=== PATIENT | female | born 1940 | race Caucasian/White ===

== ENCOUNTER 2021-06-23 19:40 | Emergency (ER) | payer OTHER, MEDICARE ==
[2021-06-23 22:13] LABS: #Lymphocytes 0.7 thou/uL (1.20-3.40); #Monocytes 0.1 thou/uL (0.11-0.59); #Neutrophils 10.1 thou/uL (1.40-6.50); %Eosinophils 0.2 % (0.0-10.0); %Lymphocytes 6.3 % (21.0-51.0); %Monocytes 1.1 % (0.0-10.0); %Neutrophils 92.4 % (42.0-75.0); Hemoglobin 13.9 g/dL (12.0-16.0); Mean Corpuscular HGB CONC 32.4 g/dL (32.0-36.0); Mean Corpuscular Hemoglobin 28.7 pg (27.0-31.0); Mean Corpuscular Volume 88.5 fL (78.0-98.0); Mean Platelet Volume 6.2 fL (7.4-10.4); Platelet Count 303 thou/uL (130-400); RBC Distribution Width 12.4 % (11.5-14.5); Red Blood Cell (RBC) Count 4.86 mill/uL (4.20-5.40); White Blood Cell (WBC) Count 10.9 thou/uL (4.8-10.8)
[2021-06-23 22:25] LABS: INR-International Normal Ratio 1.4; PTT 33.7 sec (22.9-36.1)
[2021-06-23] MEDS ORDERED: Lidocaine 1% (PF) 30 ML VIAL ONE (22:32)
[2021-06-23 22:35] LABS: ALT (SGPT) 15 U/L (8-55); AST (SGOT) 9 U/L (5-34); Albumin 3.7 g/dL (3.4-4.8); Alkaline Phosphatase 72 U/L (40-110); Anion Gap 14 mmol/L (10-20); BUN (Urea Nitrogen) 14 mg/dL (9.8-20.1); Bilirubin, Total 0.4 mg/dL (0.2-1.2); Calc. Creatinine Clearance 0 mL/min (70-130); Carbon Dioxide 29 mmol/L (23-31); Chloride 103 mmol/L (98-107); Globulin 3.3 g/dL (2.4-3.5); Glucose 191 mg/dL (83-110); Potassium 4.6 mmol/L (3.5-5.1); Sodium 141 mmol/L (136-145)
== END 2021-06-24 00:52 | disposition home or self-care (01) ==
LOC: ERS 19:40
DX: S09.90XA Unspecified injury of head, initial encounter (principal); S01.81XA Laceration without foreign body of other part of head, initial encounter; I10 Essential (primary) hypertension; W01.0XXA Fall on same level from slipping, tripping and stumbling without subsequent striking against object, initial encounter
CPT/HCPCS: 12011; 36415; 70450; 72125; 80053; 85025; 85610; 85730; J2001

== ENCOUNTER 2021-11-12 13:34 | Inpatient (IN) | payer MEDICARE ==
[2021-11-12 14:26] LABS: #Lymphocytes 1.3 thou/uL (1.20-3.40); #Monocytes 0.5 thou/uL (0.11-0.59); #Neutrophils 6.1 thou/uL (1.40-6.50); %Basophils 0.6 % (0.0-1.0); %Eosinophils 0.5 % (0.0-10.0); %Lymphocytes 16.3 % (21.0-51.0); %Neutrophils 76.6 % (42.0-75.0); Hemoglobin 14.3 g/dL (12.0-16.0); Mean Corpuscular HGB CONC 33.1 g/dL (32.0-36.0); Mean Corpuscular Volume 87.8 fL (78.0-98.0); Platelet Count 211 thou/uL (130-400); RBC Distribution Width 14.4 % (11.5-14.5); Red Blood Cell (RBC) Count 4.91 mill/uL (4.20-5.40)
[2021-11-12 14:38] LABS: INR-International Normal Ratio 1.2; PTT 27.8 sec (22.9-36.1); Prothrombin Time 15.1 sec (12.0-14.7)
[2021-11-12 14:47] LABS: ALT (SGPT) 9 U/L (8-55); AST (SGOT) 5 U/L (5-34); Albumin 3.8 g/dL (3.4-4.8); Alkaline Phosphatase 67 U/L (40-110); Anion Gap 17 mmol/L (10-20); BUN (Urea Nitrogen) 22 mg/dL (9.8-20.1); Bilirubin, Total 0.6 mg/dL (0.2-1.2); CK (CPK) 12 U/L (29-168); Calc. Creatinine Clearance 0 mL/min (70-130); Carbon Dioxide 25 mmol/L (23-31); Chloride 97 mmol/L (98-107); Globulin 2.5 g/dL (2.4-3.5); Magnesium 1.8 mg/dL (1.6-2.6); Potassium 4.2 mmol/L (3.5-5.1); Protein, Total 6.3 g/dL (5.8-8.1); Sodium 135 mmol/L (136-145)
[2021-11-12 14:55] LABS: Glucose 623 mg/dL (83-110)
[2021-11-12 15:18] LABS: Bilirubin Negative (Negative); Blood, Urine Trace (Negative); Clarity Clear (Clear); Glucose, Urine (Dipstick) Greater than 1000 mg/dL (Negative); Ketone, Urine Negative (Negative); Leukocyte 500 Leu/uL (Negative); Nitrite Negative (Negative); Protein, Urine (Dipstick) 10 mg/dL (Neg-Trace); Specific Gravity, Urine 1.032 (1.002-1.036); Squamous Epithelial 0-3 HPF (0-3); Urobilinogen Normal mg/dL (Less than 2); pH, Urine 5.5 (5.0-9.0)
[2021-11-12 15:26] LABS: Bacteria/HPF 1+ HPF (None Seen); WBC/HPF 21-50 HPF (0-3)
[2021-11-12] MEDS ORDERED: INSULIN REGULAR IN 0.9 % NACL 100 UNIT/100 ML BAG ONE (15:46)
[2021-11-12] MEDS ORDERED: Insulin Regular 300 UNITS/3 ML VIAL ONE (15:51)
[2021-11-12] MEDS ORDERED: Aztreonam 1 GM in Sodium Chloride 0.9% 100 ML IVPB SCH (16:45)
[2021-11-12] MEDS ORDERED: Senokot S 8.6-50 MG TAB PO PRN (17:05)
[2021-11-12] MEDS ORDERED: Calcium Carbonate 500 MG ChewTAB PO PRN (17:05)
[2021-11-12] MEDS ORDERED: Sodium Chloride 0.9% 1,000 ML IV SCH (17:15)
[2021-11-12] MEDS ORDERED: Magnesium 2 GM/50 ML BAG (IN WATER) ONE (17:20)
[2021-11-12] MEDS ORDERED: Acetaminophen 500 MG TAB ONE (17:21)
[2021-11-12] MEDS ORDERED: Dextrose 5% in Water 1,000 ML IV PRN (17:34)
[2021-11-12] MEDS ORDERED: Dextrose 50% Abboject 50 ML SYRINGE SLOW IVP PRN (17:34)
[2021-11-12] MEDS ORDERED: ALPRAZolam 0.25 MG TAB PO PRN (17:38)
[2021-11-12 17:40] LABS: Hemoglobin A1c 11.1 % (4.0-6.0)
[2021-11-12 17:45] LABS: Troponin I 0.013 ng/mL (< 0.028)
[2021-11-12] MEDS ORDERED: Mometasone/Formoterol 200/5 60 PUFF INH SCH (17:45)
[2021-11-12] MEDS ORDERED: Dronedarone HCl 400 MG TAB PO SCH (17:45)
[2021-11-12 20:14] LABS: Troponin I 0.013 ng/mL (< 0.028)
[2021-11-12] MEDS: Bupropion 150 MG XL TAB PO SCH (21:18)
[2021-11-12] MEDS: Apixaban 5 MG TAB PO SCH (21:18)
[2021-11-12] MEDS: guaiFENesin ER 600 MG TAB PO SCH (21:18)
[2021-11-12] MEDS: Montelukast Sodium 10 mg Tablet PO SCH (21:18)
[2021-11-12] MEDS: Insulin Regular 300 UNITS/3 ML VIAL SC PRN (21:19)
[2021-11-12 23:01] VITALS: BMI 33.8
[2021-11-13] LABS: SARS-CoV-2 PCR by NAA Not Detected (NotDetected)
[2021-11-13] MEDS: Insulin Regular 300 UNITS/3 ML VIAL SC PRN ×6 (00:11→20:06)
[2021-11-13 04:42] LABS: #Eosinphils 0.1 thou/uL (0.0-0.7); #Lymphocytes 2.3 thou/uL (1.20-3.40); #Monocytes 0.6 thou/uL (0.11-0.59); #Neutrophils 5.2 thou/uL (1.40-6.50); %Basophils 0.2 % (0.0-1.0); %Eosinophils 0.8 % (0.0-10.0); %Lymphocytes 27.7 % (21.0-51.0); %Monocytes 7.1 % (0.0-10.0); %Neutrophils 64.3 % (42.0-75.0); Hemoglobin 12.7 g/dL (12.0-16.0); Mean Corpuscular HGB CONC 33.1 g/dL (32.0-36.0); Mean Corpuscular Hemoglobin 29.2 pg (27.0-31.0); Mean Corpuscular Volume 88.2 fL (78.0-98.0); Mean Platelet Volume 7.4 fL (7.4-10.4); Platelet Count 176 thou/uL (130-400); RBC Distribution Width 14.2 % (11.5-14.5); Red Blood Cell (RBC) Count 4.37 mill/uL (4.20-5.40); White Blood Cell (WBC) Count 8.1 thou/uL (4.8-10.8)
[2021-11-13 05:04] LABS: Anion Gap 12 mmol/L (10-20); BUN (Urea Nitrogen) 19 mg/dL (9.8-20.1); Calc. Creatinine Clearance 81 mL/min (70-130); Calcium 8.6 mg/dL (7.8-10.44); Carbon Dioxide 26 mmol/L (23-31); Chloride 104 mmol/L (98-107); Glucose 220 mg/dL (83-110); Potassium 3.6 mmol/L (3.5-5.1); Sodium 138 mmol/L (136-145)
[2021-11-13] MEDS: Aztreonam 1 GM in Sodium Chloride 0.9% 100 ML IVPB SCH ×2 (05:34→17:25)
[2021-11-13] MEDS: Mometasone 200 MCG/Formoterol 5 MCG 120 PUFF INHALER INH SCH ×2 (05:35→17:47)
[2021-11-13] MEDS: Dronedarone HCl 400 MG TAB PO SCH ×2 (09:04→17:26)
[2021-11-13] MEDS: guaiFENesin ER 600 MG TAB PO SCH ×2 (09:04→20:04)
[2021-11-13] MEDS: Apixaban 5 MG TAB PO SCH ×2 (09:04→20:04)
[2021-11-13] MEDS: Bupropion 150 MG XL TAB PO SCH ×2 (09:04→20:04)
[2021-11-13] MEDS ORDERED: Promethazine 25 MG TAB PO PRN (13:45)
[2021-11-13] MEDS: Montelukast Sodium 10 mg Tablet PO SCH (20:04)
[2021-11-14] MEDS: Aztreonam 1 GM in Sodium Chloride 0.9% 100 ML IVPB SCH ×2 (05:20→18:19)
[2021-11-14] MEDS: Insulin Regular 300 UNITS/3 ML VIAL SC PRN ×4 (05:21→20:42)
[2021-11-14] MEDS: Dronedarone HCl 400 MG TAB PO SCH ×2 (07:53→15:51)
[2021-11-14] MEDS: Apixaban 5 MG TAB PO SCH ×2 (07:53→20:42)
[2021-11-14] MEDS: Bupropion 150 MG XL TAB PO SCH ×2 (07:54→20:42)
[2021-11-14] MEDS: guaiFENesin ER 600 MG TAB PO SCH ×2 (07:55→20:42)
[2021-11-14] MEDS: Mometasone 200 MCG/Formoterol 5 MCG 120 PUFF INHALER INH SCH ×2 (07:57→18:17)
[2021-11-14 08:19] LABS: Anion Gap 13 mmol/L (10-20); BUN (Urea Nitrogen) 14 mg/dL (9.8-20.1); Calc. Creatinine Clearance 74 mL/min (70-130); Calcium 8.7 mg/dL (7.8-10.44); Carbon Dioxide 23 mmol/L (23-31); Chloride 105 mmol/L (98-107); Glucose 232 mg/dL (83-110); Potassium 3.9 mmol/L (3.5-5.1); Sodium 137 mmol/L (136-145)
[2021-11-14] MEDS: Lorazepam 0.5 MG TAB PO PRN ×2 (09:48→15:50)
[2021-11-14] MEDS ORDERED: Diltiazem 125 MG in Sodium Chloride 0.9% 100 ML IVPB SCH (10:00)
[2021-11-14] MEDS ORDERED: Insulin Glargine 30 UNITS/0.3 ML VIAL SC SCH (11:45)
[2021-11-14] MEDS: Acetaminophen 325 MG TAB PO PRN (15:50)
[2021-11-14] MEDS: Montelukast Sodium 10 mg Tablet PO SCH (20:42)
[2021-11-14] MEDS ORDERED: Diltiazem HCl 125 MG in Premix Bag 1 BAG IVPB SCH (23:00)
[2021-11-15] MEDS: Aztreonam 1 GM in Sodium Chloride 0.9% 100 ML IVPB SCH (05:50)
[2021-11-15] MEDS: Mometasone 200 MCG/Formoterol 5 MCG 120 PUFF INHALER INH SCH ×2 (06:33→19:02)
[2021-11-15] MEDS: Insulin Regular 300 UNITS/3 ML VIAL SC PRN ×2 (06:42→17:33)
[2021-11-15] MEDS: Bupropion 150 MG XL TAB PO SCH ×2 (08:05→20:14)
[2021-11-15] MEDS: Dronedarone HCl 400 MG TAB PO SCH (08:05)
[2021-11-15] MEDS: Insulin Glargine 30 UNITS/0.3 ML VIAL SC SCH (08:05)
[2021-11-15] MEDS: guaiFENesin ER 600 MG TAB PO SCH ×2 (08:05→20:15)
[2021-11-15] MEDS: Apixaban 5 MG TAB PO SCH ×2 (08:05→20:14)
[2021-11-15] MEDS: Lorazepam 0.5 MG TAB PO PRN (13:37)
[2021-11-15] MEDS: Acetaminophen 325 MG TAB PO PRN (17:42)
[2021-11-15] MEDS: Flecainide 50 MG TAB PO SCH (20:14)
[2021-11-15] MEDS: Montelukast Sodium 10 mg Tablet PO SCH (20:15)
[2021-11-16] MEDS: Insulin Regular 300 UNITS/3 ML VIAL SC PRN ×2 (06:22→10:53)
[2021-11-16] MEDS: Mometasone 200 MCG/Formoterol 5 MCG 120 PUFF INHALER INH SCH (06:47)
[2021-11-16] MEDS: Bupropion 150 MG XL TAB PO SCH (08:07)
[2021-11-16] MEDS: guaiFENesin ER 600 MG TAB PO SCH (08:07)
[2021-11-16] MEDS: Apixaban 5 MG TAB PO SCH (08:07)
[2021-11-16] MEDS: Flecainide 50 MG TAB PO SCH (08:08)
[2021-11-16] MEDS: Insulin Glargine 30 UNITS/0.3 ML VIAL SC SCH (08:08)
[2021-11-16 09:20] LABS: Anion Gap 10 mmol/L (10-20); BUN (Urea Nitrogen) 9 mg/dL (9.8-20.1); Calc. Creatinine Clearance 80 mL/min (70-130); Carbon Dioxide 26 mmol/L (23-31); Chloride 107 mmol/L (98-107); Glucose 160 mg/dL (83-110); Magnesium 1.7 mg/dL (1.6-2.6); Potassium 3.6 mmol/L (3.5-5.1); Sodium 139 mmol/L (136-145)
[2021-11-16 11:44] VITALS: BP 137/78; TEMP 98
== END 2021-11-16 13:22 | disposition home or self-care (01) | DRG 308 ==
LOC: SUATTDRO 13:34 → ERS 13:34 → 2SW 16:36 → OBSVTOIN 11-14 15:21
PROVIDERS: ADMIT Internal Medicine; ATTEND Internal Medicine
DX: I48.0 Paroxysmal atrial fibrillation (principal); J96.20 Acute and chronic respiratory failure, unspecified whether with hypoxia or hypercapnia; J45.901 Unspecified asthma with (acute) exacerbation; N17.9 Acute kidney failure, unspecified; E87.1 Hypo-osmolality and hyponatremia; N39.0 Urinary tract infection, site not specified; Z20.822 Contact with and (suspected) exposure to COVID-19; E66.9 Obesity, unspecified; F41.9 Anxiety disorder, unspecified; K21.9 Gastro-esophageal reflux disease without esophagitis; H91.90 Unspecified hearing loss, unspecified ear; N18.30 Chronic kidney disease, stage 3 unspecified; F32.A Depression, unspecified; E11.65 Type 2 diabetes mellitus with hyperglycemia; Z96.653 Presence of artificial knee joint, bilateral; E11.22 Type 2 diabetes mellitus with diabetic chronic kidney disease; Z90.49 Acquired absence of other specified parts of digestive tract; Z88.1 Allergy status to other antibiotic agents; Z88.0 Allergy status to penicillin; Z88.2 Allergy status to sulfonamides; Z88.8 Allergy status to other drugs, medicaments and biological substances; Z68.34 Body mass index [BMI] 34.0-34.9, adult; Z87.891 Personal history of nicotine dependence; Z82.3 Family history of stroke; Z90.11 Acquired absence of right breast and nipple; Z86.711 Personal history of pulmonary embolism; Z87.442 Personal history of urinary calculi; Z86.73 Personal history of transient ischemic attack (TIA), and cerebral infarction without residual deficits
CPT/HCPCS: 36415; 36416; 71045; 80048; 80053; 81003; 81015; 82550; 83036; 83735; 83880; 84443; 84484; 85025; 85610; 85730; 87040; 87086; 93005; 96365; 96368; 96375; 96376; G0378; J1815; J3475; J3490; J7620; U0003; U0005

== ENCOUNTER 2021-11-30 13:20 | Outpatient (CLI) | payer MEDICARE | END 2021-11-30 13:21 | disposition home or self-care (01) | LOC: RAD 13:20 | PROVIDERS: ATTEND Internal Medicine Critical Care Medicine | DX: R06.00 Dyspnea, unspecified (principal) | CPT/HCPCS: 71046 ==

== ENCOUNTER 2021-12-14 18:00 | Outpatient (CLI) | payer MEDICARE | END 2021-12-14 18:01 | disposition home or self-care (01) | LOC: SLEEPLAB 18:00 | PROVIDERS: ATTEND Internal Medicine Critical Care Medicine | DX: G47.33 Obstructive sleep apnea (adult) (pediatric) (principal); R06.83 Snoring | CPT/HCPCS: 95800 ==

== ENCOUNTER 2022-01-04 10:32 | Outpatient (CLI) | payer MEDICARE ==
[~2022-01-04 10:32] MED LIST: Iopamidol 370 76% 100 ML VIAL ONE
== END 2022-01-04 10:33 | disposition home or self-care (01) ==
LOC: BICCT 10:32
PROVIDERS: ATTEND Family Medicine
DX: R10.9 Unspecified abdominal pain (principal); K57.30 Diverticulosis of large intestine without perforation or abscess without bleeding; K63.89 Other specified diseases of intestine; N20.0 Calculus of kidney; N28.1 Cyst of kidney, acquired
CPT/HCPCS: 74177; Q9967

== ENCOUNTER 2022-02-02 12:57 | Outpatient (CLI) | payer MEDICARE ==
[2022-02-02 14:55] LABS: Hemoglobin 13.6 g/dL (12.0-15.5); Mean Corpuscular HGB CONC 31.2 g/dL (32.0-36.0); Mean Corpuscular Hemoglobin 27.6 pg (27.0-33.0); Mean Corpuscular Volume 88.4 fl (81.6-98.3); Mean Platelet Volume 10.6 fl (7.4-10.4); Platelet Count 242 10x3/uL (150-450); RBC Distribution Width 14.3 % (11.5-14.5); Red Blood Cell (RBC) Count 4.93 10x6/uL (3.90-5.03); White Blood Cell (WBC) Count 8.5 10x3/uL (3.5-10.5)
[2022-02-02 15:05] LABS: INR-International Normal Ratio 1.1; Prothrombin Time 11.8 sec (9.5-12.1)
[2022-02-02 15:07] LABS: Anion Gap 15 mmol/L (10-20); BUN (Urea Nitrogen) 16 mg/dL (9.8-20.1); Calc. Creatinine Clearance 0 mL/min (70-130); Calcium 9.5 mg/dL (7.8-10.44); Carbon Dioxide 28 mmol/L (23-31); Chloride 103 mmol/L (98-107); Estimated GFR 76; Glucose 73 mg/dL (83-110); Potassium 4.4 mmol/L (3.5-5.1); Sodium 142 mmol/L (136-145)
== END 2022-02-02 12:58 | disposition home or self-care (01) ==
LOC: LABBT 12:57
PROVIDERS: ATTEND Internal Medicine Cardiovascular Disease
DX: Z01.812 Encounter for preprocedural laboratory examination (principal); I48.0 Paroxysmal atrial fibrillation; Z20.822 Contact with and (suspected) exposure to COVID-19
CPT/HCPCS: 80048; 85027; 85610; 87811

== ENCOUNTER 2022-02-07 10:32 | Day surgery (SDC) | payer MEDICARE ==
[2022-02-03 12:14] VITALS: BMI 31.8
[2022-02-07] MEDS ORDERED: PROPOFOL 200 MG/20 ML VIAL ONE (11:45)
[2022-02-07] MEDS ORDERED: Lidocaine 1% PF 5 ML VIAL ONE (11:45)
== END 2022-02-07 13:12 | disposition home or self-care (01) ==
LOC: SDC 10:32
PROVIDERS: ATTEND Internal Medicine Cardiovascular Disease
PROC: 5A2204Z Restoration of Cardiac Rhythm, Single (ICD-10-PCS; principal; 2022-02-07)
DX: I48.19 Other persistent atrial fibrillation (principal); J45.909 Unspecified asthma, uncomplicated; I10 Essential (primary) hypertension; K21.9 Gastro-esophageal reflux disease without esophagitis; M19.90 Unspecified osteoarthritis, unspecified site; Z86.711 Personal history of pulmonary embolism; Z86.73 Personal history of transient ischemic attack (TIA), and cerebral infarction without residual deficits; Z79.01 Long term (current) use of anticoagulants; Z79.84 Long term (current) use of oral hypoglycemic drugs; Z79.899 Other long term (current) drug therapy; Z88.0 Allergy status to penicillin; Z88.1 Allergy status to other antibiotic agents; Z88.2 Allergy status to sulfonamides; Z88.4 Allergy status to anesthetic agent
CPT/HCPCS: 92960; 93005; 93010; J2704

== ENCOUNTER 2022-02-16 16:19 | Inpatient (IN) | payer MEDICARE ==
[2022-02-16 20:39] LABS: Hemoglobin 13.9 g/dL (12.0-16.0); Mean Corpuscular Hemoglobin 28.3 pg (27.0-31.0); Mean Corpuscular Volume 88.4 fL (78.0-98.0); Mean Platelet Volume 8.6 fL (7.4-10.4); Platelet Count 202 thou/uL (130-400); RBC Distribution Width 13.4 % (11.5-14.5); White Blood Cell (WBC) Count 10.7 thou/uL (4.8-10.8)
[2022-02-16 20:54] LABS: Band 1 % (5-11); Eosinophils 1 % (0-10); Lymphocytes 11 % (21-51); MDiff Complete? YES; Monocytes 3 % (0-10); Neutrophil 82 % (42-75); Reactive Lymphocytes 1 % (0-10)
[2022-02-16 20:58] LABS: ALT (SGPT) 35 U/L (8-55); AST (SGOT) 14 U/L (5-34); Albumin 3.3 g/dL (3.4-4.8); Alkaline Phosphatase 62 U/L (40-110); Anion Gap 13 mmol/L (10-20); BUN (Urea Nitrogen) 16 mg/dL (9.8-20.1); Calc. Creatinine Clearance 0 mL/min (70-130); Calcium 9.3 mg/dL (7.8-10.44); Carbon Dioxide 30 mmol/L (23-31); Chloride 103 mmol/L (98-107); Estimated GFR 74; Globulin 2.4 g/dL (2.4-3.5); Glucose 98 mg/dL (83-110); Potassium 4.1 mmol/L (3.5-5.1); Protein, Total 5.7 g/dL (5.8-8.1); Sodium 142 mmol/L (136-145)
[2022-02-16] MEDS ORDERED: Acetaminophen 500 MG TAB ONE (21:04)
[2022-02-17] MEDS ORDERED: Acetaminophen 650 MG Suppository PR PRN (00:12)
[2022-02-17] MEDS ORDERED: Dextrose 5% in Water 1,000 ML IV PRN (00:12)
[2022-02-17] MEDS ORDERED: Ondansetron ODT 4 MG TAB PO PRN (00:12)
[2022-02-17] MEDS ORDERED: Dextrose 50% Abboject 50 ML SYRINGE SLOW IVP PRN (00:12)
[2022-02-17] MEDS ORDERED: HumaLOG 300 UNITS/3 ML VIAL SC PRN ×2 (00:12)
[2022-02-17] MEDS ORDERED: Ondansetron PF 4 MG/2 ML Vial IVP PRN (00:12)
[2022-02-17 00:25] VITALS: BMI 32.5
[2022-02-17 05:21] LABS: #Eosinphils 0.1 thou/uL (0.0-0.7); #Lymphocytes 1.9 thou/uL (1.20-3.40); #Monocytes 0.7 thou/uL (0.11-0.59); #Neutrophils 5.1 thou/uL (1.40-6.50); %Basophils 0.3 % (0.0-1.0); %Eosinophils 1.2 % (0.0-10.0); %Lymphocytes 24.7 % (21.0-51.0); %Neutrophils 64.8 % (42.0-75.0); Hemoglobin 13.6 g/dL (12.0-16.0); Mean Corpuscular HGB CONC 31.3 g/dL (32.0-36.0); Mean Corpuscular Hemoglobin 27.8 pg (27.0-31.0); Mean Platelet Volume 8.3 fL (7.4-10.4); Platelet Count 197 thou/uL (130-400); RBC Distribution Width 13.5 % (11.5-14.5); Red Blood Cell (RBC) Count 4.89 mill/uL (4.20-5.40); White Blood Cell (WBC) Count 7.8 thou/uL (4.8-10.8)
[2022-02-17 05:41] LABS: Anion Gap 13 mmol/L (10-20); BUN (Urea Nitrogen) 14 mg/dL (9.8-20.1); Calc. Creatinine Clearance 91 mL/min (70-130); Carbon Dioxide 28 mmol/L (23-31); Chloride 105 mmol/L (98-107); Estimated GFR 87; Glucose 91 mg/dL (83-110); Potassium 3.6 mmol/L (3.5-5.1); Sodium 142 mmol/L (136-145)
[2022-02-17] MEDS: Acetaminophen 325 MG TAB PO PRN ×3 (07:20→21:01)
[2022-02-17] MEDS ORDERED: Enoxaparin Sodium 40 MG/0.4 ML SYRINGE SC SCH (09:00)
[2022-02-17] MEDS: Mometasone 200 MCG/Formoterol 5 MCG 120 PUFF INHALER INH SCH (19:07)
[2022-02-17] MEDS ORDERED: Non-Formulary Item 1 EACH (Omeprazole [Omeprazole] 20 MG Capsule.Dr) PO SCH (21:00)
[2022-02-17] MEDS ORDERED: Non-Formulary Item 1 EACH (Budesonide-Formoterol [Symbicort 160-4.5] 160 MG/4.5 MG Aer) INH SCH (21:00)
[2022-02-17] MEDS: Bupropion 150 MG XL TAB PO SCH (21:02)
[2022-02-17] MEDS: Apixaban 5 MG TAB PO SCH (21:02)
[2022-02-17] MEDS ORDERED: ALPRAZolam 0.25 MG TAB PO SCH (22:45)
[2022-02-18] MEDS: Acetaminophen 325 MG TAB PO PRN ×2 (04:13→21:03)
[2022-02-18] MEDS: Mometasone 200 MCG/Formoterol 5 MCG 120 PUFF INHALER INH SCH ×2 (07:47→19:29)
[2022-02-18] MEDS: Ezetimibe 10 MG TAB PO SCH (08:16)
[2022-02-18] MEDS: Apixaban 5 MG TAB PO SCH ×2 (08:16→21:05)
[2022-02-18] MEDS: Bupropion 150 MG XL TAB PO SCH ×2 (08:17→21:05)
[2022-02-18] MEDS: Montelukast Sodium 10 mg Tablet PO SCH (08:17)
[2022-02-18] MEDS ORDERED: Diltiazem HCl SR 60 mg Capsule PO SCH (09:30)
[2022-02-18] MEDS: metFORMIN 500 MG TAB PO SCH (16:22)
[2022-02-18] MEDS: Flecainide 50 MG TAB PO SCH (21:04)
[2022-02-18] MEDS: ALPRAZolam 0.25 MG TAB PO PRN (23:07)
[2022-02-18] MEDS ORDERED: Albuterol Sulfate 2.5 mg/3 ml Neb NEB PRN (23:43)
[2022-02-19] MEDS: Mometasone 200 MCG/Formoterol 5 MCG 120 PUFF INHALER INH SCH ×2 (08:19→19:19)
[2022-02-19] MEDS: metFORMIN 500 MG TAB PO SCH ×2 (08:49→16:07)
[2022-02-19] MEDS: Bupropion 150 MG XL TAB PO SCH ×2 (08:49→20:16)
[2022-02-19] MEDS: Ezetimibe 10 MG TAB PO SCH (08:49)
[2022-02-19] MEDS: Montelukast Sodium 10 mg Tablet PO SCH (08:49)
[2022-02-19] MEDS: Apixaban 5 MG TAB PO SCH ×2 (08:49→20:16)
[2022-02-19] MEDS: Flecainide 50 MG TAB PO SCH ×2 (10:35→20:15)
[2022-02-19] MEDS ORDERED: Polyethylene Glycol 3350 17 GM Packet PO PRN (14:26)
[2022-02-19] MEDS ORDERED: Senokot S 8.6-50 MG TAB PO PRN (14:26)
[2022-02-19] MEDS: ALPRAZolam 0.25 MG TAB PO PRN (23:25)
[2022-02-20 05:32] LABS: #Eosinphils 0.1 thou/uL (0.0-0.7); #Lymphocytes 1.7 thou/uL (1.20-3.40); #Monocytes 0.6 thou/uL (0.11-0.59); #Neutrophils 4.7 thou/uL (1.40-6.50); %Basophils 0.3 % (0.0-1.0); %Eosinophils 1.8 % (0.0-10.0); %Lymphocytes 23.8 % (21.0-51.0); %Neutrophils 66.1 % (42.0-75.0); Hemoglobin 12.8 g/dL (12.0-16.0); Mean Corpuscular HGB CONC 32.2 g/dL (32.0-36.0); Mean Corpuscular Hemoglobin 28.7 pg (27.0-31.0); Mean Platelet Volume 8.2 fL (7.4-10.4); Platelet Count 205 thou/uL (130-400); RBC Distribution Width 13.5 % (11.5-14.5); Red Blood Cell (RBC) Count 4.46 mill/uL (4.20-5.40); White Blood Cell (WBC) Count 7.1 thou/uL (4.8-10.8)
[2022-02-20 05:40] LABS: Anion Gap 13 mmol/L (10-20); BUN (Urea Nitrogen) 11 mg/dL (9.8-20.1); Calc. Creatinine Clearance 91 mL/min (70-130); Calcium 9.4 mg/dL (7.8-10.44); Carbon Dioxide 27 mmol/L (23-31); Chloride 104 mmol/L (98-107); Estimated GFR 87; Glucose 109 mg/dL (83-110); Sodium 140 mmol/L (136-145)
[2022-02-20] MEDS: Apixaban 5 MG TAB PO SCH (08:18)
[2022-02-20] MEDS: metFORMIN 500 MG TAB PO SCH ×2 (08:18→17:01)
[2022-02-20] MEDS: Montelukast Sodium 10 mg Tablet PO SCH (08:18)
[2022-02-20] MEDS: Ezetimibe 10 MG TAB PO SCH (08:19)
[2022-02-20] MEDS: Flecainide 50 MG TAB PO SCH (08:19)
[2022-02-20] MEDS: Bupropion 150 MG XL TAB PO SCH (08:19)
[2022-02-20] MEDS: Mometasone 200 MCG/Formoterol 5 MCG 120 PUFF INHALER INH SCH ×2 (12:40→18:59)
[2022-02-20 16:20] VITALS: BP 116/69; TEMP 98.5
[2022-02-20] MEDS ORDERED: Flecainide 50 MG TAB PO SCH ×2 (21:00)
== END 2022-02-20 18:58 | DRG 310 ==
LOC: ERS 16:19 → NEURO 22:20 → OBSVTOIN 02-18 18:10
PROVIDERS: ADMIT Family Medicine; ATTEND Family Medicine
DX: I48.0 Paroxysmal atrial fibrillation (principal); Z20.822 Contact with and (suspected) exposure to COVID-19; I10 Essential (primary) hypertension; J45.909 Unspecified asthma, uncomplicated; S00.83XA Contusion of other part of head, initial encounter; W19.XXXA Unspecified fall, initial encounter; R29.6 Repeated falls; C50.919 Malignant neoplasm of unspecified site of unspecified female breast; Z88.0 Allergy status to penicillin; Z88.1 Allergy status to other antibiotic agents; Z88.2 Allergy status to sulfonamides; Z79.01 Long term (current) use of anticoagulants; Z79.51 Long term (current) use of inhaled steroids; Z79.84 Long term (current) use of oral hypoglycemic drugs; Z79.899 Other long term (current) drug therapy
CPT/HCPCS: 36415; 36416; 70450; 70551; 71045; 80048; 80053; 84443; 85025; 90471; 90732; 93005; 94640; 96372; 96374; G0009; G0378; J1650; J1815; J7611; U0003; U0005

== ENCOUNTER 2022-03-02 22:25 | Inpatient (IN) | payer MEDICARE ==
[~2022-03-02 22:25] MED LIST changes: +Heparin 1,000 UNITS/ML VIAL ONE; -Iopamidol 370 76% 100 ML VIAL ONE
[2022-03-02] MEDS ORDERED: NOREPINEPHRINE 8 MG/250 ML-D5W 250 ML ONE (23:01)
[2022-03-02] MEDS ORDERED: Meropenem 1 GM in Sodium Chloride 0.9% 100 ML IVPB SCH (23:45)
[2022-03-02] MEDS ORDERED: Ondansetron ODT 4 MG TAB SL PRN (23:45)
[2022-03-02] MEDS ORDERED: Ondansetron PF 4 MG/2 ML Vial IVP PRN (23:45)
[2022-03-03] MEDS ORDERED: Acetaminophen 650 MG Suppository PR PRN (00:54)
[2022-03-03] MEDS ORDERED: methylPREDNISolone Sod Succ/PF 125 MG/2 ML VIAL IVP SCH (01:39)
[2022-03-03] MEDS ORDERED: NOREPINEPHRINE 8 MG/250 ML-D5W 250 ML IVPB SCH (02:30)
[2022-03-03] MEDS ORDERED: VANCOMYCIN 2 GRAM/500 ML BAG 2 GM in Premix Bag 1 BAG IVPB SCH (03:00)
[2022-03-03 03:14] LABS: SARS-CoV-2 NAA Rapid Test Not Detected (NotDetected)
[2022-03-03 04:25] LABS: Anion Gap 16 mmol/L (10-20); BUN (Urea Nitrogen) 48 mg/dL (9.8-20.1); Calc. Creatinine Clearance 39 mL/min (70-130); Calcium 9.6 mg/dL (7.8-10.44); Carbon Dioxide 25 mmol/L (23-31); Chloride 104 mmol/L (98-107); Estimated GFR 30; Glucose 139 mg/dL (83-110); Sodium 140 mmol/L (136-145)
[2022-03-03 04:40] LABS: Band 21 % (5-11); Hemoglobin 12.2 g/dL (12.0-16.0); MDiff Complete? YES; Mean Corpuscular HGB CONC 31.2 g/dL (32.0-36.0); Mean Corpuscular Hemoglobin 27.7 pg (27.0-31.0); Mean Corpuscular Volume 88.9 fL (78.0-98.0); Mean Platelet Volume 9.2 fL (7.4-10.4); Monocytes 4 % (0-10); Neutrophil 75 % (42-75); Platelet Count 113 thou/uL (130-400); Platelet Morphology Comment Appears Decreased; RBC Distribution Width 13.9 % (11.5-14.5); RBC Morphology Normal; Red Blood Cell (RBC) Count 4.41 mill/uL (4.20-5.40); White Blood Cell (WBC) Count 30.9 thou/uL (4.8-10.8)
[2022-03-03] MEDS: Enoxaparin Sodium 40 MG/0.4 ML SYRINGE SC SCH (08:03)
[2022-03-03] MEDS ORDERED: Bisacodyl 10 MG SUPP PR PRN (11:06)
[2022-03-03] MEDS: Meropenem 1 GM in Sodium Chloride 0.9% 100 ML IVPB SCH (13:57)
[2022-03-03] MEDS ORDERED: Lactated Ringer's 500 ML IV SCH (15:45)
[2022-03-03] MEDS ORDERED: ALPRAZolam 0.25 MG TAB PO SCH (23:00)
[2022-03-04] MEDS: Meropenem 1 GM in Sodium Chloride 0.9% 100 ML IVPB SCH ×2 (00:35→12:37)
[2022-03-04] MEDS ORDERED: VANCOMYCIN 1.25 GM/250 ML BAG 1.25 GM in Premix Bag 1 BAG IVPB SCH (03:00)
[2022-03-04] MEDS: Enoxaparin Sodium 40 MG/0.4 ML SYRINGE SC SCH (09:03)
[2022-03-04 10:17] LABS: Lactic Acid 1.2 mmol/L (0.5-2.2)
[2022-03-04 10:20] LABS: Mean Corpuscular HGB CONC 30.9 g/dL (32.0-36.0); Mean Corpuscular Hemoglobin 27.9 pg (27.0-31.0); Mean Corpuscular Volume 90.4 fL (78.0-98.0); Mean Platelet Volume 10.2 fL (7.4-10.4); Platelet Count 80 thou/uL (130-400); RBC Distribution Width 13.6 % (11.5-14.5)
[2022-03-04 10:23] LABS: ALT (SGPT) 26 U/L (8-55); AST (SGOT) 7 U/L (5-34); Alkaline Phosphatase 67 U/L (40-110); Anion Gap 15 mmol/L (10-20); BUN (Urea Nitrogen) 57 mg/dL (9.8-20.1); Bilirubin, Total 0.5 mg/dL (0.2-1.2); Calc. Creatinine Clearance 46 mL/min (70-130); Calcium 9.7 mg/dL (7.8-10.44); Carbon Dioxide 25 mmol/L (23-31); Chloride 105 mmol/L (98-107); Estimated GFR 37; Globulin 2.6 g/dL (2.4-3.5); Glucose 160 mg/dL (83-110); Potassium 5.1 mmol/L (3.5-5.1); Protein, Total 5.6 g/dL (5.8-8.1); Sodium 140 mmol/L (136-145)
[2022-03-04] MEDS ORDERED: Digoxin 0.5 MG/2 ML AMP SLOW IVP SCH (11:00)
[2022-03-04 11:08] LABS: Band 3 % (5-11); Lymphocytes 4 % (21-51); MDiff Complete? YES; Metamyelocyte 1 % (0-0); Monocytes 1 % (0-10); Neutrophil 91 % (42-75); Platelet Morphology Comment Appears Decreased; RBC Morphology Normal
[2022-03-04] MEDS ORDERED: Diltiazem HCl SR 60 mg Capsule PO SCH (12:45)
[2022-03-04] MEDS: Acetaminophen 325 MG TAB PO PRN (18:51)
[2022-03-04] MEDS: ALPRAZolam 0.25 MG TAB PO PRN (20:07)
[2022-03-05] MEDS: Meropenem 1 GM in Sodium Chloride 0.9% 100 ML IVPB SCH ×2 (00:11→13:53)
[2022-03-05] MEDS: Acetaminophen 325 MG TAB PO PRN ×3 (01:35→22:56)
[2022-03-05 04:14] LABS: Anion Gap 12 mmol/L (10-20); BUN (Urea Nitrogen) 47 mg/dL (9.8-20.1); CRP (Inflammatory) 12.47 mg/dL (= or < 0.5); Calc. Creatinine Clearance 65 mL/min (70-130); Calcium 9.3 mg/dL (7.8-10.44); Carbon Dioxide 27 mmol/L (23-31); Chloride 106 mmol/L (98-107); Estimated GFR 56; Glucose 116 mg/dL (83-110); Potassium 4.5 mmol/L (3.5-5.1); Sodium 140 mmol/L (136-145)
[2022-03-05 04:25] LABS: Band 23 % (5-11); Hemoglobin 11.8 g/dL (12.0-16.0); Lymphocytes 2 % (21-51); MDiff Complete? YES; Mean Corpuscular HGB CONC 31.4 g/dL (32.0-36.0); Mean Corpuscular Volume 88.9 fL (78.0-98.0); Mean Platelet Volume 10.1 fL (7.4-10.4); Monocytes 4 % (0-10); Neutrophil 71 % (42-75); Platelet Count 69 thou/uL (130-400); Platelet Morphology Comment Appears Decreased; RBC Distribution Width 13.6 % (11.5-14.5); Red Blood Cell (RBC) Count 4.21 mill/uL (4.20-5.40); White Blood Cell (WBC) Count 13.1 thou/uL (4.8-10.8)
[2022-03-05] MEDS: Enoxaparin Sodium 40 MG/0.4 ML SYRINGE SC SCH (08:09)
[2022-03-05] MEDS ORDERED: Diltiazem HCl SR 60 mg Capsule PO SCH (09:00)
[2022-03-05] MEDS ORDERED: Amiodarone 150 MG, Admixture Fee 1 EACH in Dextrose 5% in Water 100 ML IVPB SCH (10:30)
[2022-03-05] MEDS: Amiodarone 450 MG, Admixture Fee 1 EACH in Dextrose 5% in Water 250 ML IVPB SCH ×2 (10:42→19:31)
[2022-03-05] MEDS: ALPRAZolam 0.25 MG TAB PO PRN (15:56)
[2022-03-06] MEDS: Meropenem 1 GM in Sodium Chloride 0.9% 100 ML IVPB SCH ×3 (00:07→16:40)
[2022-03-06] MEDS: ALPRAZolam 0.25 MG TAB PO PRN (00:07)
[2022-03-06 04:31] LABS: Anion Gap 15 mmol/L (10-20); BUN (Urea Nitrogen) 32 mg/dL (9.8-20.1); Calc. Creatinine Clearance 89 mL/min (70-130); Calcium 9.5 mg/dL (7.8-10.44); Carbon Dioxide 24 mmol/L (23-31); Chloride 106 mmol/L (98-107); Estimated GFR 80; Glucose 106 mg/dL (83-110); Potassium 4.5 mmol/L (3.5-5.1); Sodium 140 mmol/L (136-145)
[2022-03-06 04:40] LABS: Band 5 % (5-11); Eosinophils 1 % (0-10); Hemoglobin 12.6 g/dL (12.0-16.0); Lymphocytes 14 % (21-51); MDiff Complete? YES; Mean Corpuscular Hemoglobin 28.2 pg (27.0-31.0); Mean Corpuscular Volume 88.3 fL (78.0-98.0); Monocytes 4 % (0-10); Neutrophil 75 % (42-75); Platelet Count 57 thou/uL (130-400); Platelet Morphology Comment Appears Decreased; RBC Distribution Width 13.6 % (11.5-14.5); RBC Morphology Normal; Reactive Lymphocytes 1 % (0-10); Red Blood Cell (RBC) Count 4.47 mill/uL (4.20-5.40); White Blood Cell (WBC) Count 9.5 thou/uL (4.8-10.8)
[2022-03-06] MEDS: Acetaminophen 325 MG TAB PO PRN ×2 (05:46→15:19)
[2022-03-06] MEDS ORDERED: Furosemide 20 MG/2 ML VIAL SLOW IVP SCH ×2 (09:15→16:00)
[2022-03-06] MEDS: Apixaban 5 MG TAB PO SCH ×2 (10:02→20:36)
[2022-03-06] MEDS: traMADol HCl 50 MG TAB PO PRN (12:08)
[2022-03-07] MEDS: Meropenem 1 GM in Sodium Chloride 0.9% 100 ML IVPB SCH ×3 (01:19→15:35)
[2022-03-07] MEDS: Amiodarone 450 MG, Admixture Fee 1 EACH in Dextrose 5% in Water 250 ML IVPB SCH (04:04)
[2022-03-07] MEDS: ALPRAZolam 0.25 MG TAB PO PRN (04:44)
[2022-03-07] MEDS: Furosemide 20 MG/2 ML VIAL SLOW IVP SCH ×2 (04:48→15:36)
[2022-03-07 05:01] LABS: Anion Gap 11 mmol/L (10-20); BUN (Urea Nitrogen) 23 mg/dL (9.8-20.1); Calc. Creatinine Clearance 91 mL/min (70-130); Carbon Dioxide 32 mmol/L (23-31); Chloride 101 mmol/L (98-107); Estimated GFR 83; Glucose 124 mg/dL (83-110); Potassium 4.1 mmol/L (3.5-5.1); Sodium 140 mmol/L (136-145)
[2022-03-07 05:32] LABS: Band 3 % (5-11); Hemoglobin 12.8 g/dL (12.0-16.0); Lymphocytes 14 % (21-51); MDiff Complete? YES; Mean Corpuscular Hemoglobin 27.7 pg (27.0-31.0); Mean Corpuscular Volume 89.3 fL (78.0-98.0); Monocytes 8 % (0-10); Neutrophil 75 % (42-75); Platelet Count 64 thou/uL (130-400); Platelet Morphology Comment Appears Decreased; RBC Distribution Width 13.4 % (11.5-14.5); Red Blood Cell (RBC) Count 4.63 mill/uL (4.20-5.40); White Blood Cell (WBC) Count 11.6 thou/uL (4.8-10.8)
[2022-03-07] MEDS: Apixaban 5 MG TAB PO SCH (09:12)
[2022-03-07] MEDS: traMADol HCl 50 MG TAB PO PRN (09:58)
[2022-03-07] MEDS ORDERED: Spironolactone 25 MG TAB PO SCH (11:30)
[2022-03-08] MEDS: Meropenem 1 GM in Sodium Chloride 0.9% 100 ML IVPB SCH ×4 (00:50→21:12)
[2022-03-08] MEDS: Acetaminophen 325 MG TAB PO PRN ×2 (03:12→15:50)
[2022-03-08] MEDS: ALPRAZolam 0.25 MG TAB PO PRN ×2 (03:18→15:28)
[2022-03-08 04:36] LABS: #Eosinphils 0.1 thou/uL (0.0-0.7); #Lymphocytes 0.9 thou/uL (1.20-3.40); #Neutrophils 7.8 thou/uL (1.40-6.50); %Eosinophils 0.8 % (0.0-10.0); %Lymphocytes 9.4 % (21.0-51.0); %Monocytes 10.4 % (0.0-10.0); %Neutrophils 79.4 % (42.0-75.0); Mean Corpuscular HGB CONC 31.2 g/dL (32.0-36.0); Mean Corpuscular Hemoglobin 27.6 pg (27.0-31.0); Mean Corpuscular Volume 88.3 fL (78.0-98.0); Mean Platelet Volume 10.2 fL (7.4-10.4); Platelet Count 79 thou/uL (130-400); RBC Distribution Width 13.4 % (11.5-14.5); White Blood Cell (WBC) Count 9.8 thou/uL (4.8-10.8)
[2022-03-08 04:52] LABS: Anion Gap 15 mmol/L (10-20); BUN (Urea Nitrogen) 23 mg/dL (9.8-20.1); Calc. Creatinine Clearance 97 mL/min (70-130); Calcium 9.3 mg/dL (7.8-10.44); Carbon Dioxide 35 mmol/L (23-31); Chloride 95 mmol/L (98-107); Estimated GFR 87; Glucose 120 mg/dL (83-110); Potassium 3.6 mmol/L (3.5-5.1); Sodium 141 mmol/L (136-145)
[2022-03-08] MEDS: Furosemide 20 MG/2 ML VIAL SLOW IVP SCH ×2 (05:03→17:35)
[2022-03-08] MEDS ORDERED: Potassium Chloride 20 MEQ TAB PO SCH (08:00)
[2022-03-08] MEDS: Spironolactone 25 MG TAB PO SCH (08:59)
[2022-03-08] MEDS: Amiodarone 450 MG, Admixture Fee 1 EACH in Dextrose 5% in Water 250 ML IVPB SCH (10:45)
[2022-03-08] MEDS: traMADol HCl 50 MG TAB PO PRN (15:28)
[2022-03-09] MEDS: Meropenem 1 GM in Sodium Chloride 0.9% 100 ML IVPB SCH ×3 (01:13→19:17)
[2022-03-09] MEDS: Furosemide 20 MG/2 ML VIAL SLOW IVP SCH ×2 (05:00→18:01)
[2022-03-09] MEDS: Acetaminophen 325 MG TAB PO PRN ×2 (06:26→20:39)
[2022-03-09] MEDS: Spironolactone 25 MG TAB PO SCH (08:36)
[2022-03-09] MEDS ORDERED: Diltiazem HCl SR 60 mg Capsule PO SCH (09:45)
[2022-03-09] MEDS: Amiodarone 200 MG TAB PO SCH ×3 (10:03→20:39)
[2022-03-09 10:42] LABS: Hemoglobin 12.4 g/dL (12.0-16.0); Platelet Count 107 thou/uL (130-400)
[2022-03-09 10:57] LABS: BUN (Urea Nitrogen) 19 mg/dL (9.8-20.1); Calc. Creatinine Clearance 100 mL/min (70-130); Calcium 8.8 mg/dL (7.8-10.44); Estimated GFR 88; Glucose 109 mg/dL (83-110)
[2022-03-09 11:06] LABS: Anion Gap 14 mmol/L (10-20); Carbon Dioxide 37 mmol/L (23-31); Chloride 94 mmol/L (98-107); Sodium 141 mmol/L (136-145)
[2022-03-09] MEDS ORDERED: Potassium Chloride 20 MEQ TAB PO SCH (12:00)
[2022-03-09 15:13] LABS: Heparin-Induced Ab (HITA) 0.043 OD (0.000-0.400)
[2022-03-09] MEDS ORDERED: Phenylephrine 10 MG/ML VIAL ONE ×2 (16:32→17:21)
[2022-03-09] MEDS ORDERED: fentaNYL Citrate/PF 100 MCG/2 ML SYRINGE ONE (16:32)
[2022-03-09] MEDS ORDERED: PROPOFOL 200 MG/20 ML VIAL ONE (17:21)
[2022-03-09] MEDS ORDERED: Iopamidol 30 ML ONE (17:39)
[2022-03-09] MEDS ORDERED: Ondansetron HCl/PF 4 MG/2 ML Vial IVP PRN ×2 (17:45)
[2022-03-09] MEDS ORDERED: Promethazine HCl 25 MG/ML VIAL IM PRN ×2 (17:45)
[2022-03-09] MEDS ORDERED: Promethazine HCl 25 MG/ML VIAL IVPB PRN ×2 (17:45)
[2022-03-09] MEDS: ALPRAZolam 0.25 MG TAB PO PRN (20:39)
[2022-03-10] MEDS: Meropenem 1 GM in Sodium Chloride 0.9% 100 ML IVPB SCH ×3 (01:13→17:41)
[2022-03-10] MEDS: Acetaminophen 325 MG TAB PO PRN ×4 (03:04→21:39)
[2022-03-10 04:49] LABS: Anion Gap 13 mmol/L (10-20); BUN (Urea Nitrogen) 23 mg/dL (9.8-20.1); Calc. Creatinine Clearance 105 mL/min (70-130); Calcium 8.8 mg/dL (7.8-10.44); Carbon Dioxide 37 mmol/L (23-31); Chloride 95 mmol/L (98-107); Estimated GFR 89; Glucose 111 mg/dL (83-110); Hemoglobin 11.4 g/dL (12.0-16.0); Platelet Count 110 thou/uL (130-400); Potassium 4.2 mmol/L (3.5-5.1); Sodium 141 mmol/L (136-145)
[2022-03-10] MEDS: Furosemide 20 MG/2 ML VIAL SLOW IVP SCH ×2 (05:29→14:44)
[2022-03-10] MEDS: Spironolactone 25 MG TAB PO SCH (09:30)
[2022-03-10] MEDS: Amiodarone 200 MG TAB PO SCH ×3 (09:30→21:41)
[2022-03-10] MEDS: ALPRAZolam 0.25 MG TAB PO PRN ×3 (09:30→21:41)
[2022-03-11] MEDS: Meropenem 1 GM in Sodium Chloride 0.9% 100 ML IVPB SCH ×3 (01:00→16:30)
[2022-03-11 07:38] LABS: BUN (Urea Nitrogen) 19 mg/dL (9.8-20.1); Calc. Creatinine Clearance 101 mL/min (70-130); Calcium 9.3 mg/dL (7.8-10.44); Estimated GFR 88; Glucose 96 mg/dL (83-110); Magnesium 1.3 mg/dL (1.6-2.6)
[2022-03-11 07:47] LABS: Anion Gap 17 mmol/L (10-20); Carbon Dioxide 37 mmol/L (23-31); Chloride 92 mmol/L (98-107); Potassium 3.8 mmol/L (3.5-5.1); Sodium 142 mmol/L (136-145)
[2022-03-11] MEDS: Spironolactone 25 MG TAB PO SCH (07:51)
[2022-03-11] MEDS: Acetaminophen 325 MG TAB PO PRN ×3 (07:51→20:31)
[2022-03-11] MEDS: ALPRAZolam 0.25 MG TAB PO PRN ×2 (07:52→20:33)
[2022-03-11] MEDS: Furosemide 20 MG TAB PO SCH ×2 (08:09→14:30)
[2022-03-11] MEDS: Amiodarone 200 MG TAB PO SCH ×3 (08:09→20:31)
[2022-03-11] MEDS ORDERED: Magnesium Sulfate 4 GM in Sodium Chloride 0.9% 250 ML 250 ML IVPB SCH (08:15)
[2022-03-11] MEDS ORDERED: Magnesium Sulfate In Water 4 GM in Premix Bag 1 BAG IVPB SCH (08:45)
[2022-03-12] MEDS: Meropenem 1 GM in Sodium Chloride 0.9% 100 ML IVPB SCH ×3 (01:39→16:32)
[2022-03-12] MEDS: Acetaminophen 325 MG TAB PO PRN ×3 (03:05→20:25)
[2022-03-12] MEDS: Amiodarone 200 MG TAB PO SCH ×3 (08:59→20:26)
[2022-03-12] MEDS: Furosemide 20 MG TAB PO SCH ×2 (09:00→14:52)
[2022-03-12] MEDS: Spironolactone 25 MG TAB PO SCH (09:00)
[2022-03-12] MEDS: ALPRAZolam 0.25 MG TAB PO PRN ×2 (12:21→20:25)
[2022-03-13] MEDS: Meropenem 1 GM in Sodium Chloride 0.9% 100 ML IVPB SCH ×3 (01:47→16:55)
[2022-03-13] MEDS: Furosemide 20 MG TAB PO SCH ×2 (08:32→13:35)
[2022-03-13] MEDS: Spironolactone 25 MG TAB PO SCH (08:32)
[2022-03-13] MEDS: Amiodarone 200 MG TAB PO SCH ×3 (08:33→20:52)
[2022-03-13] MEDS: Acetaminophen 325 MG TAB PO PRN ×2 (11:49→20:52)
[2022-03-13] MEDS ORDERED: Potassium Chloride 20 MEQ TAB PO SCH (12:00)
[2022-03-13] MEDS: ALPRAZolam 0.25 MG TAB PO PRN (20:52)
[2022-03-14] MEDS: Meropenem 1 GM in Sodium Chloride 0.9% 100 ML IVPB SCH ×3 (00:42→16:03)
[2022-03-14 04:36] LABS: #Eosinphils 0.1 thou/uL (0.0-0.7); #Lymphocytes 1.3 thou/uL (1.20-3.40); #Monocytes 0.5 thou/uL (0.11-0.59); %Basophils 0.3 % (0.0-1.0); %Eosinophils 1.5 % (0.0-10.0); %Lymphocytes 19.1 % (21.0-51.0); %Neutrophils 72.1 % (42.0-75.0); Hemoglobin 11.7 g/dL (12.0-16.0); Mean Corpuscular Hemoglobin 27.3 pg (27.0-31.0); Mean Corpuscular Volume 88.1 fL (78.0-98.0); Mean Platelet Volume 8.9 fL (7.4-10.4); Platelet Count 169 thou/uL (130-400); RBC Distribution Width 13.6 % (11.5-14.5); Red Blood Cell (RBC) Count 4.29 mill/uL (4.20-5.40); White Blood Cell (WBC) Count 6.9 thou/uL (4.8-10.8)
[2022-03-14 04:59] LABS: Phosphorus 3.4 mg/dL (2.3-4.7)
[2022-03-14 05:02] LABS: Anion Gap 15 mmol/L (10-20); BUN (Urea Nitrogen) 17 mg/dL (9.8-20.1); Calc. Creatinine Clearance 79 mL/min (70-130); Calcium 9.3 mg/dL (7.8-10.44); Carbon Dioxide 36 mmol/L (23-31); Chloride 94 mmol/L (98-107); Estimated GFR 81; Glucose 97 mg/dL (83-110); Magnesium 1.7 mg/dL (1.6-2.6); Potassium 4.2 mmol/L (3.5-5.1); Sodium 141 mmol/L (136-145)
[2022-03-14] MEDS: Spironolactone 25 MG TAB PO SCH (08:44)
[2022-03-14] MEDS: Amiodarone 200 MG TAB PO SCH ×2 (08:44→21:33)
[2022-03-14] MEDS: Furosemide 20 MG TAB PO SCH ×2 (08:44→13:33)
[2022-03-14 10:06] VITALS: BMI 31.4
[2022-03-14] MEDS: Acetaminophen 325 MG TAB PO PRN ×2 (13:33→21:32)
[2022-03-14] MEDS: ALPRAZolam 0.25 MG TAB PO PRN (21:33)
[2022-03-14] MEDS: traMADol HCl 50 MG TAB PO PRN (23:03)
[2022-03-15] MEDS: Meropenem 1 GM in Sodium Chloride 0.9% 100 ML IVPB SCH ×3 (00:44→17:44)
[2022-03-15 07:27] LABS: BUN (Urea Nitrogen) 19 mg/dL (9.8-20.1); Calc. Creatinine Clearance 83 mL/min (70-130); Calcium 9.1 mg/dL (7.8-10.44); Estimated GFR 81; Glucose 125 mg/dL (83-110)
[2022-03-15 07:37] LABS: Anion Gap 17 mmol/L (10-20); Carbon Dioxide 33 mmol/L (23-31); Chloride 96 mmol/L (98-107); Potassium 3.9 mmol/L (3.5-5.1); Sodium 142 mmol/L (136-145)
[2022-03-15] MEDS: Amiodarone 200 MG TAB PO SCH ×2 (09:14→20:28)
[2022-03-15] MEDS: Furosemide 20 MG TAB PO SCH (10:20)
[2022-03-15] MEDS: Spironolactone 25 MG TAB PO SCH (10:20)
[2022-03-15] MEDS: Acetaminophen 325 MG TAB PO PRN (12:04)
[2022-03-15] MEDS ORDERED: Ketorolac Tromethamine 30 MG/ML VIAL IVP SCH (13:30)
[2022-03-15] MEDS ORDERED: Albuterol Sulfate 2.5 mg/3 ml Neb NEB PRN (16:36)
[2022-03-15] MEDS: Mometasone 200 MCG/Formoterol 5 MCG 120 PUFF INHALER INH SCH (18:56)
[2022-03-15] MEDS: Apixaban 2.5 MG TAB PO SCH (20:27)
[2022-03-15] MEDS: Bupropion 150 MG XL TAB PO SCH (20:28)
[2022-03-15] MEDS: metFORMIN 500 MG TAB PO SCH (20:30)
[2022-03-15] MEDS: ALPRAZolam 0.25 MG TAB PO PRN (21:37)
[2022-03-16 01:10] VITALS: TEMP 98
[2022-03-16] MEDS: Meropenem 1 GM in Sodium Chloride 0.9% 100 ML IVPB SCH ×3 (01:35→17:45)
[2022-03-16] MEDS: Acetaminophen 325 MG TAB PO PRN ×2 (04:26→11:21)
[2022-03-16] MEDS: ALPRAZolam 0.25 MG TAB PO PRN (06:53)
[2022-03-16 07:10] LABS: Anion Gap 14 mmol/L (10-20); BUN (Urea Nitrogen) 20 mg/dL (9.8-20.1); Calc. Creatinine Clearance 82 mL/min (70-130); Calcium 9.6 mg/dL (7.8-10.44); Carbon Dioxide 35 mmol/L (23-31); Chloride 94 mmol/L (98-107); Estimated GFR 80; Glucose 100 mg/dL (83-110); Sodium 139 mmol/L (136-145)
[2022-03-16] MEDS ORDERED: Spironolactone 25 MG TAB PO SCH (08:00)
[2022-03-16] MEDS: Apixaban 2.5 MG TAB PO SCH (08:33)
[2022-03-16] MEDS: metFORMIN 500 MG TAB PO SCH (08:34)
[2022-03-16] MEDS: Amiodarone 200 MG TAB PO SCH (08:34)
[2022-03-16] MEDS: Bupropion 150 MG XL TAB PO SCH (08:39)
[2022-03-16] MEDS ORDERED: Magnesium Oxide 250 MG TAB PO SCH (09:00)
[2022-03-16] MEDS ORDERED: Montelukast Sodium 10 mg Tablet PO SCH (09:00)
[2022-03-16] MEDS ORDERED: Cholecalciferol 1,000 UNITS (25 MCG) TAB PO SCH (09:00)
[2022-03-16 09:27] VITALS: BP 90/62
[2022-03-16] MEDS: Mometasone 200 MCG/Formoterol 5 MCG 120 PUFF INHALER INH SCH ×2 (10:06→18:50)
[2022-03-16] MEDS ORDERED: traMADol HCl 50 MG TAB PO PRN (11:20)
== END 2022-03-16 19:28 | disposition swing bed (61) | DRG 853 ==
LOC: ERS 22:25 → CCU 23:34 → IMCU/EMU 03-04 12:53 → 2NO 03-06 14:11 → T4-A 03-14 20:31
PROVIDERS: ADMIT Student in an Organized Health Care Education/Training Program; ATTEND Family Medicine
PROC: 3E033XZ Introduction of Vasopressor into Peripheral Vein, Percutaneous Approach (ICD-10-PCS; 2022-03-03)
PROC: 3E03329 Introduction of Other Anti-infective into Peripheral Vein, Percutaneous Approach (ICD-10-PCS; 2022-03-03)
PROC: 5A09357 Assistance with Respiratory Ventilation, Less than 24 Consecutive Hours, Continuous Positive Airway Pressure (ICD-10-PCS; 2022-03-03)
PROC: 0T768DZ Dilation of Right Ureter with Intraluminal Device, Via Natural or Artificial Opening Endoscopic (ICD-10-PCS; principal; 2022-03-09)
PROC: 02HV33Z Insertion of Infusion Device into Superior Vena Cava, Percutaneous Approach (ICD-10-PCS; 2022-03-15)
DX: A41.51 Sepsis due to Escherichia coli [E. coli] (principal); G93.41 Metabolic encephalopathy; R65.21 Severe sepsis with septic shock; J96.01 Acute respiratory failure with hypoxia; I50.33 Acute on chronic diastolic (congestive) heart failure; N17.0 Acute kidney failure with tubular necrosis; N10 Acute pyelonephritis; I13.0 Hypertensive heart and chronic kidney disease with heart failure and stage 1 through stage 4 chronic kidney disease, or unspecified chronic kidney disease; K57.92 Diverticulitis of intestine, part unspecified, without perforation or abscess without bleeding; D61.818 Other pancytopenia; I48.11 Longstanding persistent atrial fibrillation; R53.81 Other malaise; J45.909 Unspecified asthma, uncomplicated; E87.5 Hyperkalemia; N18.30 Chronic kidney disease, stage 3 unspecified; E11.22 Type 2 diabetes mellitus with diabetic chronic kidney disease; N20.0 Calculus of kidney; K59.00 Constipation, unspecified; C50.912 Malignant neoplasm of unspecified site of left female breast; R31.9 Hematuria, unspecified; S30.1XXA Contusion of abdominal wall, initial encounter; I48.0 Paroxysmal atrial fibrillation; N13.9 Obstructive and reflux uropathy, unspecified; E66.9 Obesity, unspecified; Z20.822 Contact with and (suspected) exposure to COVID-19; F32.A Depression, unspecified; L89.151 Pressure ulcer of sacral region, stage 1; Z96.653 Presence of artificial knee joint, bilateral; Z68.31 Body mass index [BMI] 31.0-31.9, adult; Z90.49 Acquired absence of other specified parts of digestive tract; Z90.710 Acquired absence of both cervix and uterus; Z98.890 Other specified postprocedural states; Z88.8 Allergy status to other drugs, medicaments and biological substances; Z88.0 Allergy status to penicillin; Z88.1 Allergy status to other antibiotic agents; Z88.2 Allergy status to sulfonamides; Z79.899 Other long term (current) drug therapy; Z79.01 Long term (current) use of anticoagulants; Z99.2 Dependence on renal dialysis; Z99.3 Dependence on wheelchair
CPT/HCPCS: 36415; 36416; 36569; 71045; 74176; 74420; 76999; 80048; 82565; 83605; 83735; 83880; 84100; 85014; 85018; 85025; 85049; 86140; 87040; 93005; 94640; 96365; 96366; 96374; C1751; C2617; J0282; J1160; J1644; J1650; J1885; J1940; J2185; J2370; J2704; J2930; J3370; J3475; J3490; J7070; J7120; J7620; Q9967; U0002; U0003; U0005

== ENCOUNTER 2022-07-15 12:23 | Inpatient (IN) | payer MEDICARE, SELFPAY ==
[2022-07-15 13:21] LABS: #Lymphocytes 0.4 thou/uL (1.20-3.40); #Monocytes 0.2 thou/uL (0.11-0.59); %Basophils 0.2 % (0.0-1.0); %Lymphocytes 7.5 % (21.0-51.0); %Monocytes 3.6 % (0.0-10.0); %Neutrophils 88.7 % (42.0-75.0); Mean Corpuscular Volume 84.7 fl (78.0-98.0); Mean Platelet Volume 9.3 fL (7.4-10.4); Platelet Count 137 10x3/uL (130-400); RBC Distribution Width 13.3 % (11.5-14.5); Red Blood Cell (RBC) Count 4.64 mill/uL (4.20-5.40); White Blood Cell (WBC) Count 5.7 10x3/uL (4.8-10.8)
[2022-07-15 13:32] LABS: INR-International Normal Ratio 1.3
[2022-07-15 13:33] LABS: PTT 41.2 sec (22.9-36.1)
[2022-07-15 13:43] LABS: ALT (SGPT) 20 U/L (8-55); AST (SGOT) 22 U/L (5-34); Albumin 3.6 g/dL (3.4-4.8); Alkaline Phosphatase 78 U/L (40-110); Anion Gap 18 mmol/L (10-20); BUN (Urea Nitrogen) 33 mg/dL (9.8-20.1); Bilirubin, Total 0.7 mg/dL (0.2-1.2); Calc. Creatinine Clearance 0 mL/min (70-130); Calcium 9.6 mg/dL (7.8-10.44); Carbon Dioxide 24 mmol/L (23-31); Estimated GFR 33; Globulin 3.1 g/dL (2.4-3.5); Glucose 133 mg/dL (83-110); Lipase 9 U/L (8-78); Magnesium 1.9 mg/dL (1.6-2.6); Protein, Total 6.7 g/dL (5.8-8.1)
[2022-07-15 13:48] LABS: Chloride 96 mmol/L (98-107); Potassium 4.6 mmol/L (3.5-5.1); Sodium 133 mmol/L (136-145)
[2022-07-15] MEDS ORDERED: Azithromycin 500 MG VIAL ONE (13:55)
[2022-07-15 14:04] LABS: CKMB 1.1 ng/mL (0-6.6)
[2022-07-15] MEDS ORDERED: NOREPINEPHRINE 8 MG/250 ML-D5W 250 ML ONE (14:43)
[2022-07-15] MEDS ORDERED: Digoxin 0.5 MG/2 ML AMP ONE (14:52)
[2022-07-15] MEDS ORDERED: Meropenem 1 GM in Sodium Chloride 0.9% 100 ML IVPB SCH (15:00)
[2022-07-15 15:08] LABS: SARS-CoV-2 NAA Rapid Test Not Detected (NotDetected)
[2022-07-15 15:21] LABS: Actual Bicarbonate (HCO3a) 22.3 mEq/L (22-28); Analyzer IN Cardio ER; CO2 Tension 41.2 mmHg (35.0-45.0); Calcium, Ionized (arterial) 1.18 mmol/L (1.12-1.30); Carboxyhemoglobin (COHb) 0.3 gm% (0.0-3.0); Hemoglobin (Hb) 12.7 g/dL (12.0-16.0); O2 Tension (PaO2), arterial 68.1 mmHg (> 60.0); Potassium - ABG Lab 4.93 mmol/L (3.70-5.30); Puncture Site LRA; pH, Arterial 7.35 (7.35-7.45)
[2022-07-15] MEDS ORDERED: Acetaminophen 325 MG TAB PO PRN (16:07)
[2022-07-15] MEDS ORDERED: NOREPINEPHRINE 8 MG/250 ML-D5W 250 ML IVPB PRN (16:07)
[2022-07-15] MEDS ORDERED: Ipratropium/Albuterol 3 ML NEB NEB PRN (16:14)
[2022-07-15 17:19] LABS: Troponin I 0.137 ng/mL (< 0.028)
[2022-07-15] MEDS: Ipratropium/Albuterol 3 ML NEB NEB SCH (18:38)
[2022-07-15] MEDS: Mometasone 200 MCG/Formoterol 5 MCG 120 PUFF INHALER INH SCH (18:39)
[2022-07-15] MEDS: Apixaban 5 MG TAB PO SCH (20:58)
[2022-07-15] MEDS: Famotidine 20 MG TAB PO SCH (20:58)
[2022-07-15] MEDS: Meropenem 1 GM in Sodium Chloride 0.9% 100 ML IVPB SCH (23:15)
[2022-07-16] MEDS: Ipratropium/Albuterol 3 ML NEB NEB SCH ×5 (03:31→19:20)
[2022-07-16 04:17] LABS: #Lymphocytes 0.5 thou/uL (1.20-3.40); #Monocytes 0.4 thou/uL (0.11-0.59); #Neutrophils 6.2 thou/uL (1.40-6.50); %Lymphocytes 7.4 % (21.0-51.0); %Monocytes 5.8 % (0.0-10.0); %Neutrophils 86.9 % (42.0-75.0); Hemoglobin 11.5 g/dL (12.0-16.0); Mean Corpuscular HGB CONC 32.6 g/dL (32.0-36.0); Mean Corpuscular Volume 85.9 fl (78.0-98.0); Mean Platelet Volume 8.7 fL (7.4-10.4); Platelet Count 147 10x3/uL (130-400); Red Blood Cell (RBC) Count 4.12 mill/uL (4.20-5.40); White Blood Cell (WBC) Count 7.2 10x3/uL (4.8-10.8)
[2022-07-16 04:40] LABS: Anion Gap 15 mmol/L (10-20); BUN (Urea Nitrogen) 40 mg/dL (9.8-20.1); Calc. Creatinine Clearance 33 mL/min (70-130); Calcium 9.4 mg/dL (7.8-10.44); Carbon Dioxide 28 mmol/L (23-31); Chloride 101 mmol/L (98-107); Estimated GFR 35; Glucose 98 mg/dL (83-110); Potassium 4.6 mmol/L (3.5-5.1); Sodium 139 mmol/L (136-145)
[2022-07-16] MEDS ORDERED: FLU VACC QS2022-23(65YR UP)/PF 240 MCG/0.7 ML SYRINGE IM ONE (09:00)
[2022-07-16] MEDS: Famotidine 20 MG TAB PO SCH ×2 (09:20→22:20)
[2022-07-16] MEDS: Apixaban 5 MG TAB PO SCH ×2 (09:20→22:20)
[2022-07-16] MEDS: Montelukast Sodium 10 mg Tablet PO SCH (09:20)
[2022-07-16] MEDS: Ezetimibe 10 MG TAB PO SCH (09:20)
[2022-07-16] MEDS: Letrozole 2.5 MG TAB PO SCH (09:56)
[2022-07-16] MEDS: Meropenem 1 GM in Sodium Chloride 0.9% 100 ML IVPB SCH ×2 (10:59→23:52)
[2022-07-16] MEDS: methylPREDNISolone Sod Succ 40 MG VIAL IVP SCH ×3 (12:24→23:52)
[2022-07-16] MEDS: Mometasone 200 MCG/Formoterol 5 MCG 120 PUFF INHALER INH SCH ×2 (12:48→19:21)
[2022-07-16] MEDS: Azithromycin 500 MG in Sodium Chloride 0.9% 250 ML 250 ML IVPB SCH (16:25)
[2022-07-17] MEDS ORDERED: ALPRAZolam 0.5 MG TAB PO SCH (00:30)
[2022-07-17] MEDS: methylPREDNISolone Sod Succ 40 MG VIAL IVP SCH ×3 (05:58→17:58)
[2022-07-17 06:40] LABS: Hemoglobin 10.6 g/dL (12.0-16.0); Mean Corpuscular HGB CONC 31.8 g/dL (32.0-36.0); Mean Corpuscular Hemoglobin 27.4 pg (27.0-31.0); Mean Corpuscular Volume 86.2 fl (78.0-98.0); Mean Platelet Volume 8.5 fL (7.4-10.4); Platelet Count 139 10x3/uL (130-400); RBC Distribution Width 12.9 % (11.5-14.5); Red Blood Cell (RBC) Count 3.88 mill/uL (4.20-5.40); White Blood Cell (WBC) Count 2.4 10x3/uL (4.8-10.8)
[2022-07-17 07:00] LABS: Anion Gap 13 mmol/L (10-20); BUN (Urea Nitrogen) 42 mg/dL (9.8-20.1); Calc. Creatinine Clearance 38 mL/min (70-130); Carbon Dioxide 28 mmol/L (23-31); Chloride 103 mmol/L (98-107); Estimated GFR 37; Glucose 144 mg/dL (83-110); Potassium 4.3 mmol/L (3.5-5.1); Sodium 140 mmol/L (136-145)
[2022-07-17] MEDS ORDERED: Ipratropium Bromide 2.5 ml Neb ONE (07:17)
[2022-07-17] MEDS: Ipratropium/Albuterol 3 ML NEB NEB SCH (07:26)
[2022-07-17] MEDS: Mometasone 200 MCG/Formoterol 5 MCG 120 PUFF INHALER INH SCH ×2 (07:26→18:30)
[2022-07-17] MEDS: Ezetimibe 10 MG TAB PO SCH (08:59)
[2022-07-17] MEDS: Famotidine 20 MG TAB PO SCH (08:59)
[2022-07-17] MEDS: Apixaban 5 MG TAB PO SCH ×2 (08:59→21:57)
[2022-07-17] MEDS: Montelukast Sodium 10 mg Tablet PO SCH (08:59)
[2022-07-17] MEDS: Letrozole 2.5 MG TAB PO SCH (09:00)
[2022-07-17] MEDS ORDERED: ALPRAZolam 0.5 MG TAB PO PRN (10:00)
[2022-07-17] MEDS ORDERED: Saccharomyces boulardii 250 MG CAP PO SCH (11:00)
[2022-07-17] MEDS: Ipratropium Bromide 2.5 ml Neb NEB SCH ×4 (11:32→22:26)
[2022-07-17] MEDS: Meropenem 1 GM in Sodium Chloride 0.9% 100 ML IVPB SCH (11:49)
[2022-07-17] MEDS: Benzonatate 100 MG CAP PO PRN ×2 (11:59→21:57)
[2022-07-17] MEDS: Azithromycin 500 MG in Sodium Chloride 0.9% 250 ML 250 ML IVPB SCH (15:01)
[2022-07-17] MEDS ORDERED: Ipratropium/Albuterol 3 ML NEB ONE ×2 (18:17→22:10)
[2022-07-17] MEDS: Bupropion 150 MG XL TAB PO SCH (21:57)
[2022-07-18] MEDS: methylPREDNISolone Sod Succ 40 MG VIAL IVP SCH ×5 (00:15→23:49)
[2022-07-18] MEDS: Meropenem 1 GM in Sodium Chloride 0.9% 100 ML IVPB SCH ×2 (00:16→11:32)
[2022-07-18] MEDS ORDERED: ALPRAZolam 0.25 MG TAB PO SCH (01:00)
[2022-07-18] MEDS ORDERED: Ipratropium/Albuterol 3 ML NEB ONE (01:50)
[2022-07-18] MEDS: Ipratropium Bromide 2.5 ml Neb NEB SCH ×3 (02:00→10:50)
[2022-07-18] MEDS: Benzonatate 100 MG CAP PO PRN ×4 (05:42→21:07)
[2022-07-18 06:15] LABS: #Lymphocytes 0.2 thou/uL (1.20-3.40); #Monocytes 0.1 thou/uL (0.11-0.59); #Neutrophils 3.4 thou/uL (1.40-6.50); %Eosinophils 0.1 % (0.0-10.0); %Lymphocytes 5.8 % (21.0-51.0); %Neutrophils 91.1 % (42.0-75.0); Hemoglobin 10.8 g/dL (12.0-16.0); Mean Corpuscular HGB CONC 32.9 g/dL (32.0-36.0); Mean Corpuscular Hemoglobin 28.4 pg (27.0-31.0); Mean Corpuscular Volume 86.4 fl (78.0-98.0); Mean Platelet Volume 8.4 fL (7.4-10.4); Platelet Count 167 10x3/uL (130-400); Red Blood Cell (RBC) Count 3.81 mill/uL (4.20-5.40); White Blood Cell (WBC) Count 3.7 10x3/uL (4.8-10.8)
[2022-07-18 06:34] LABS: Anion Gap 14 mmol/L (10-20); BUN (Urea Nitrogen) 44 mg/dL (9.8-20.1); Calc. Creatinine Clearance 42 mL/min (70-130); Calcium 9.5 mg/dL (7.8-10.44); Carbon Dioxide 28 mmol/L (23-31); Chloride 104 mmol/L (98-107); Estimated GFR 42; Glucose 283 mg/dL (83-110); Potassium 4.2 mmol/L (3.5-5.1); Sodium 142 mmol/L (136-145)
[2022-07-18] MEDS: Apixaban 5 MG TAB PO SCH ×2 (08:53→21:07)
[2022-07-18] MEDS: Bupropion 150 MG XL TAB PO SCH ×2 (08:53→21:07)
[2022-07-18] MEDS: Montelukast Sodium 10 mg Tablet PO SCH (08:53)
[2022-07-18] MEDS: Ezetimibe 10 MG TAB PO SCH (08:53)
[2022-07-18] MEDS: Letrozole 2.5 MG TAB PO SCH (08:55)
[2022-07-18] MEDS: Saccharomyces boulardii 250 MG CAP PO SCH (08:55)
[2022-07-18] MEDS: Mometasone 200 MCG/Formoterol 5 MCG 120 PUFF INHALER INH SCH ×2 (09:30→18:48)
[2022-07-18] MEDS: Ipratropium/Albuterol 3 ML NEB NEB SCH ×3 (14:11→22:36)
[2022-07-18] MEDS: Azithromycin 500 MG in Sodium Chloride 0.9% 250 ML 250 ML IVPB SCH (15:50)
[2022-07-18] MEDS: Digoxin 0.5 MG/2 ML AMP SLOW IVP SCH ×2 (18:16→23:53)
[2022-07-19] MEDS: Ipratropium/Albuterol 3 ML NEB NEB SCH ×6 (02:27→22:12)
[2022-07-19 05:00] LABS: #Lymphocytes 0.3 thou/uL (1.20-3.40); #Monocytes 0.1 thou/uL (0.11-0.59); #Neutrophils 3.7 thou/uL (1.40-6.50); %Eosinophils 0.2 % (0.0-10.0); %Lymphocytes 6.1 % (21.0-51.0); %Monocytes 3.5 % (0.0-10.0); %Neutrophils 90.2 % (42.0-75.0); Hemoglobin 10.6 g/dL (12.0-16.0); Mean Corpuscular HGB CONC 31.8 g/dL (32.0-36.0); Mean Corpuscular Hemoglobin 27.4 pg (27.0-31.0); Mean Corpuscular Volume 86.2 fl (78.0-98.0); Mean Platelet Volume 8.3 fL (7.4-10.4); Platelet Count 171 10x3/uL (130-400); RBC Distribution Width 12.9 % (11.5-14.5); Red Blood Cell (RBC) Count 3.86 mill/uL (4.20-5.40); White Blood Cell (WBC) Count 4.1 10x3/uL (4.8-10.8)
[2022-07-19 05:19] LABS: Anion Gap 10 mmol/L (10-20); BUN (Urea Nitrogen) 38 mg/dL (9.8-20.1); Calc. Creatinine Clearance 57 mL/min (70-130); Calcium 9.3 mg/dL (7.8-10.44); Carbon Dioxide 31 mmol/L (23-31); Chloride 104 mmol/L (98-107); Estimated GFR 60; Glucose 236 mg/dL (83-110); Potassium 4.3 mmol/L (3.5-5.1); Sodium 141 mmol/L (136-145)
[2022-07-19] MEDS: methylPREDNISolone Sod Succ 40 MG VIAL IVP SCH ×3 (05:47→16:59)
[2022-07-19] MEDS ORDERED: Morphine 2 MG/ML VIAL SLOW IVP PRN (06:11)
[2022-07-19] MEDS ORDERED: Morphine 4 MG/ML VIAL SLOW IVP PRN (06:13)
[2022-07-19] MEDS ORDERED: Dextrose 50% Abboject 50 ML SYRINGE SLOW IVP PRN (07:18)
[2022-07-19] MEDS ORDERED: Dextrose 5% in Water 1,000 ML IV PRN (07:18)
[2022-07-19] MEDS: Mometasone 200 MCG/Formoterol 5 MCG 120 PUFF INHALER INH SCH ×2 (08:13→18:40)
[2022-07-19] MEDS ORDERED: Digoxin 0.5 MG/2 ML AMP SLOW IVP SCH (10:00)
[2022-07-19] MEDS ORDERED: Furosemide 40 MG/4 ML VIAL SLOW IVP SCH (10:00)
[2022-07-19] MEDS ORDERED: Empagliflozin 10 MG TAB PO SCH (10:00)
[2022-07-19] MEDS: Bupropion 150 MG XL TAB PO SCH ×3 (10:50→20:39)
[2022-07-19] MEDS: Saccharomyces boulardii 250 MG CAP PO SCH (10:50)
[2022-07-19] MEDS: Ezetimibe 10 MG TAB PO SCH ×2 (10:50→16:58)
[2022-07-19] MEDS: Letrozole 2.5 MG TAB PO SCH ×2 (10:54→16:58)
[2022-07-19] MEDS: Benzonatate 100 MG CAP PO PRN ×2 (10:54→20:39)
[2022-07-19] MEDS: Montelukast Sodium 10 mg Tablet PO SCH (10:55)
[2022-07-19] MEDS: Apixaban 5 MG TAB PO SCH ×3 (10:55→20:39)
[2022-07-19] MEDS ORDERED: Furosemide 20 MG/2 ML VIAL SLOW IVP SCH (16:00)
[2022-07-19] MEDS: Potassium Chloride 20 MEQ TAB PO SCH (16:55)
[2022-07-19] MEDS: HumaLOG 300 UNITS/3 ML VIAL SC PRN (20:39)
[2022-07-20] MEDS: methylPREDNISolone Sod Succ 40 MG VIAL IVP SCH ×5 (00:25→21:44)
[2022-07-20] MEDS: Ipratropium/Albuterol 3 ML NEB NEB SCH ×4 (01:20→18:48)
[2022-07-20] MEDS: ALPRAZolam 0.5 MG TAB PO PRN ×2 (04:06→23:27)
[2022-07-20 04:44] LABS: Anion Gap 12 mmol/L (10-20); BUN (Urea Nitrogen) 41 mg/dL (9.8-20.1); Calc. Creatinine Clearance 53 mL/min (70-130); Carbon Dioxide 34 mmol/L (23-31); Chloride 100 mmol/L (98-107); Estimated GFR 55; Glucose 213 mg/dL (83-110); Potassium 4.3 mmol/L (3.5-5.1); Sodium 142 mmol/L (136-145)
[2022-07-20] MEDS: Furosemide 20 MG/2 ML VIAL SLOW IVP SCH ×2 (06:04→14:53)
[2022-07-20] MEDS: Benzonatate 100 MG CAP PO PRN ×2 (06:05→21:46)
[2022-07-20] MEDS: HumaLOG 300 UNITS/3 ML VIAL SC PRN ×3 (06:07→21:46)
[2022-07-20] MEDS: Mometasone 200 MCG/Formoterol 5 MCG 120 PUFF INHALER INH SCH ×2 (07:31→18:48)
[2022-07-20] MEDS: Bupropion 150 MG XL TAB PO SCH ×2 (09:28→21:45)
[2022-07-20] MEDS: Digoxin 0.125 MG TAB PO SCH (09:28)
[2022-07-20] MEDS: Montelukast Sodium 10 mg Tablet PO SCH (09:28)
[2022-07-20] MEDS: Empagliflozin 10 MG TAB PO SCH (09:28)
[2022-07-20] MEDS: Ezetimibe 10 MG TAB PO SCH (09:28)
[2022-07-20] MEDS: Potassium Chloride 20 MEQ TAB PO SCH ×2 (09:28→17:24)
[2022-07-20] MEDS: Saccharomyces boulardii 250 MG CAP PO SCH (09:28)
[2022-07-20] MEDS: Apixaban 5 MG TAB PO SCH ×2 (09:28→21:45)
[2022-07-20] MEDS: Letrozole 2.5 MG TAB PO SCH (09:32)
[2022-07-21] MEDS: Ipratropium/Albuterol 3 ML NEB NEB SCH ×5 (01:43→23:38)
[2022-07-21] MEDS: methylPREDNISolone Sod Succ 40 MG VIAL IVP SCH ×2 (05:08→15:13)
[2022-07-21] MEDS: Furosemide 20 MG/2 ML VIAL SLOW IVP SCH ×2 (05:08→15:13)
[2022-07-21] MEDS: HumaLOG 300 UNITS/3 ML VIAL SC PRN ×4 (05:20→20:52)
[2022-07-21] MEDS: Mometasone 200 MCG/Formoterol 5 MCG 120 PUFF INHALER INH SCH ×2 (07:26→18:54)
[2022-07-21] MEDS: Bupropion 150 MG XL TAB PO SCH ×2 (09:15→20:52)
[2022-07-21] MEDS: Apixaban 5 MG TAB PO SCH ×2 (09:15→20:51)
[2022-07-21] MEDS: Potassium Chloride 20 MEQ TAB PO SCH ×2 (09:15→18:15)
[2022-07-21] MEDS: Digoxin 0.125 MG TAB PO SCH (09:16)
[2022-07-21] MEDS: Empagliflozin 10 MG TAB PO SCH (09:16)
[2022-07-21] MEDS: Montelukast Sodium 10 mg Tablet PO SCH (09:16)
[2022-07-21] MEDS: Ezetimibe 10 MG TAB PO SCH (09:16)
[2022-07-21] MEDS: Saccharomyces boulardii 250 MG CAP PO SCH (09:16)
[2022-07-21] MEDS: Letrozole 2.5 MG TAB PO SCH (11:01)
[2022-07-21] MEDS ORDERED: Guaifenesin DM 100-10/5 ML UDCUP PO PRN (12:57)
[2022-07-21] MEDS: Benzonatate 100 MG CAP PO PRN ×2 (15:21→20:52)
[2022-07-21] MEDS: ALPRAZolam 0.5 MG TAB PO PRN (20:52)
[2022-07-22] MEDS: methylPREDNISolone Sod Succ 40 MG VIAL IVP SCH ×2 (03:19→15:02)
[2022-07-22 05:02] LABS: Hemoglobin 12.1 g/dL (12.0-16.0); Mean Corpuscular HGB CONC 32.4 g/dL (32.0-36.0); Mean Corpuscular Hemoglobin 27.7 pg (27.0-31.0); Mean Corpuscular Volume 85.4 fl (78.0-98.0); Mean Platelet Volume 8.2 fL (7.4-10.4); Platelet Count 219 10x3/uL (130-400); RBC Distribution Width 13.2 % (11.5-14.5); Red Blood Cell (RBC) Count 4.38 mill/uL (4.20-5.40); White Blood Cell (WBC) Count 6.5 10x3/uL (4.8-10.8)
[2022-07-22 05:27] LABS: Anion Gap 14 mmol/L (10-20); BUN (Urea Nitrogen) 47 mg/dL (9.8-20.1); Calc. Creatinine Clearance 55 mL/min (70-130); Calcium 10.2 mg/dL (7.8-10.44); Carbon Dioxide 34 mmol/L (23-31); Chloride 96 mmol/L (98-107); Estimated GFR 63; Glucose 255 mg/dL (83-110); Potassium 4.8 mmol/L (3.5-5.1); Sodium 139 mmol/L (136-145)
[2022-07-22] MEDS: Furosemide 20 MG/2 ML VIAL SLOW IVP SCH (06:01)
[2022-07-22] MEDS: HumaLOG 300 UNITS/3 ML VIAL SC PRN ×4 (06:01→20:43)
[2022-07-22] MEDS: Ipratropium/Albuterol 3 ML NEB NEB SCH ×3 (07:50→19:19)
[2022-07-22] MEDS: Mometasone 200 MCG/Formoterol 5 MCG 120 PUFF INHALER INH SCH ×2 (07:50→19:20)
[2022-07-22] MEDS: Potassium Chloride 20 MEQ TAB PO SCH ×2 (08:54→18:02)
[2022-07-22] MEDS: Apixaban 5 MG TAB PO SCH ×2 (08:55→20:42)
[2022-07-22] MEDS: Bupropion 150 MG XL TAB PO SCH ×2 (08:56→20:42)
[2022-07-22] MEDS: Digoxin 0.125 MG TAB PO SCH (08:56)
[2022-07-22] MEDS: Empagliflozin 10 MG TAB PO SCH (08:58)
[2022-07-22] MEDS: Ezetimibe 10 MG TAB PO SCH (08:58)
[2022-07-22] MEDS: Letrozole 2.5 MG TAB PO SCH (08:59)
[2022-07-22] MEDS: Montelukast Sodium 10 mg Tablet PO SCH (08:59)
[2022-07-22] MEDS: Saccharomyces boulardii 250 MG CAP PO SCH (08:59)
[2022-07-22] MEDS: Furosemide 40 MG TAB PO SCH (15:02)
[2022-07-22] MEDS: Benzonatate 100 MG CAP PO PRN (15:03)
[2022-07-22] MEDS ORDERED: ALPRAZolam 0.5 MG TAB PO SCH (16:15)
[2022-07-22] MEDS: Nystatin 500,000 UNITS/5 ML UDCUP SSW SCH ×2 (18:03→20:42)
[2022-07-22] MEDS ORDERED: hydrOXYzine Pamoate 25 mg Capsule PO SCH (20:15)
[2022-07-22] MEDS: Insulin Glargine 30 UNITS/0.3 ML VIAL SC SCH (20:43)
[2022-07-23] MEDS: Ipratropium/Albuterol 3 ML NEB NEB SCH ×4 (00:57→18:36)
[2022-07-23] MEDS: Benzonatate 100 MG CAP PO PRN (02:23)
[2022-07-23] MEDS: methylPREDNISolone Sod Succ 40 MG VIAL IVP SCH (02:23)
[2022-07-23] MEDS: HumaLOG 300 UNITS/3 ML VIAL SC PRN ×3 (05:50→17:25)
[2022-07-23] MEDS: Mometasone 200 MCG/Formoterol 5 MCG 120 PUFF INHALER INH SCH ×2 (07:42→18:37)
[2022-07-23] MEDS: Apixaban 5 MG TAB PO SCH ×2 (09:00→20:25)
[2022-07-23] MEDS: Nystatin 500,000 UNITS/5 ML UDCUP SSW SCH ×4 (09:00→20:27)
[2022-07-23] MEDS ORDERED: ALPRAZolam 0.5 MG TAB PO SCH (09:00)
[2022-07-23] MEDS: Montelukast Sodium 10 mg Tablet PO SCH (09:03)
[2022-07-23] MEDS: Potassium Chloride 20 MEQ TAB PO SCH ×2 (09:03→18:24)
[2022-07-23] MEDS: Insulin Glargine 30 UNITS/0.3 ML VIAL SC SCH ×2 (09:03→21:51)
[2022-07-23] MEDS: Digoxin 0.125 MG TAB PO SCH (09:04)
[2022-07-23] MEDS: Ezetimibe 10 MG TAB PO SCH (09:04)
[2022-07-23] MEDS: Furosemide 40 MG TAB PO SCH (09:04)
[2022-07-23] MEDS: Saccharomyces boulardii 250 MG CAP PO SCH (09:04)
[2022-07-23] MEDS: Letrozole 2.5 MG TAB PO SCH (09:05)
[2022-07-23] MEDS: Empagliflozin 10 MG TAB PO SCH (09:05)
[2022-07-23] MEDS: Bupropion 150 MG XL TAB PO SCH ×2 (09:05→20:26)
[2022-07-23] MEDS ORDERED: ALPRAZolam 0.5 MG TAB PO PRN (19:38)
[2022-07-24] MEDS: Ipratropium/Albuterol 3 ML NEB NEB SCH ×4 (00:48→18:58)
[2022-07-24] MEDS ORDERED: Furosemide 40 MG TAB PO SCH (07:30)
[2022-07-24] MEDS ORDERED: predniSONE 20 MG TAB PO SCH (08:00)
[2022-07-24] MEDS: Mometasone 200 MCG/Formoterol 5 MCG 120 PUFF INHALER INH SCH ×2 (08:11→19:01)
[2022-07-24 09:07] LABS: Anion Gap 10 mmol/L (10-20); BUN (Urea Nitrogen) 56 mg/dL (9.8-20.1); Calc. Creatinine Clearance 48 mL/min (70-130); Calcium 9.8 mg/dL (7.8-10.44); Carbon Dioxide 35 mmol/L (23-31); Chloride 100 mmol/L (98-107); Estimated GFR 53; Glucose 92 mg/dL (83-110); Potassium 4.4 mmol/L (3.5-5.1); Sodium 141 mmol/L (136-145)
[2022-07-24] MEDS: Insulin Glargine 30 UNITS/0.3 ML VIAL SC SCH ×2 (10:08→21:53)
[2022-07-24] MEDS: Nystatin 500,000 UNITS/5 ML UDCUP SSW SCH ×4 (10:08→20:17)
[2022-07-24] MEDS: Bupropion 150 MG XL TAB PO SCH ×2 (10:09→20:17)
[2022-07-24] MEDS: Letrozole 2.5 MG TAB PO SCH (10:09)
[2022-07-24] MEDS: Ezetimibe 10 MG TAB PO SCH (10:09)
[2022-07-24] MEDS: Potassium Chloride 20 MEQ TAB PO SCH (10:09)
[2022-07-24] MEDS: Apixaban 5 MG TAB PO SCH ×2 (10:09→20:17)
[2022-07-24] MEDS: Digoxin 0.125 MG TAB PO SCH (10:10)
[2022-07-24] MEDS: Saccharomyces boulardii 250 MG CAP PO SCH (10:10)
[2022-07-24] MEDS: Montelukast Sodium 10 mg Tablet PO SCH (10:10)
[2022-07-24] MEDS: Empagliflozin 10 MG TAB PO SCH (10:10)
[2022-07-24] MEDS: HumaLOG 300 UNITS/3 ML VIAL SC PRN (21:52)
[2022-07-25] MEDS: Ipratropium/Albuterol 3 ML NEB NEB SCH ×4 (01:16→18:29)
[2022-07-25 05:07] LABS: Anion Gap 12 mmol/L (10-20); BUN (Urea Nitrogen) 60 mg/dL (9.8-20.1); Calc. Creatinine Clearance 37 mL/min (70-130); Calcium 9.6 mg/dL (7.8-10.44); Carbon Dioxide 35 mmol/L (23-31); Chloride 96 mmol/L (98-107); Estimated GFR 40; Glucose 166 mg/dL (83-110); Potassium 4.5 mmol/L (3.5-5.1); Sodium 138 mmol/L (136-145)
[2022-07-25] MEDS: Mometasone 200 MCG/Formoterol 5 MCG 120 PUFF INHALER INH SCH ×2 (07:02→18:32)
[2022-07-25] MEDS ORDERED: predniSONE 20 MG TAB PO SCH (08:00)
[2022-07-25] MEDS: Digoxin 0.125 MG TAB PO SCH (09:41)
[2022-07-25] MEDS: Montelukast Sodium 10 mg Tablet PO SCH (09:41)
[2022-07-25] MEDS: Bupropion 150 MG XL TAB PO SCH ×2 (09:42→21:24)
[2022-07-25] MEDS: Saccharomyces boulardii 250 MG CAP PO SCH (09:42)
[2022-07-25] MEDS: Potassium Chloride 20 MEQ TAB PO SCH (09:42)
[2022-07-25] MEDS: Empagliflozin 10 MG TAB PO SCH (09:42)
[2022-07-25] MEDS: Nystatin 500,000 UNITS/5 ML UDCUP SSW SCH ×4 (09:42→21:24)
[2022-07-25] MEDS: Apixaban 5 MG TAB PO SCH ×2 (09:43→21:24)
[2022-07-25] MEDS: Ezetimibe 10 MG TAB PO SCH (09:43)
[2022-07-25] MEDS: Letrozole 2.5 MG TAB PO SCH (09:43)
[2022-07-25] MEDS ORDERED: Guaifenesin DM 100-10/5 ML UDCUP PO SCH (13:15)
[2022-07-25] MEDS: HumaLOG 300 UNITS/3 ML VIAL SC PRN (17:27)
[2022-07-25] MEDS: Guaifenesin DM 100-10/5 ML UDCUP PO SCH ×2 (17:27→21:24)
[2022-07-25] MEDS: Insulin Glargine 30 UNITS/0.3 ML VIAL SC SCH (21:24)
[2022-07-26] MEDS: Ipratropium/Albuterol 3 ML NEB NEB SCH ×4 (00:31→18:32)
[2022-07-26] MEDS: Guaifenesin DM 100-10/5 ML UDCUP PO SCH ×6 (02:33→20:05)
[2022-07-26] MEDS: Mometasone 200 MCG/Formoterol 5 MCG 120 PUFF INHALER INH SCH ×2 (07:44→18:33)
[2022-07-26] MEDS: Ezetimibe 10 MG TAB PO SCH (09:21)
[2022-07-26] MEDS: Potassium Chloride 20 MEQ TAB PO SCH (09:21)
[2022-07-26] MEDS: Saccharomyces boulardii 250 MG CAP PO SCH (09:21)
[2022-07-26] MEDS: Montelukast Sodium 10 mg Tablet PO SCH (09:21)
[2022-07-26] MEDS: Apixaban 5 MG TAB PO SCH ×2 (09:22→20:05)
[2022-07-26] MEDS: Digoxin 0.125 MG TAB PO SCH (09:23)
[2022-07-26] MEDS: predniSONE 20 MG TAB PO SCH (09:23)
[2022-07-26] MEDS: Bupropion 150 MG XL TAB PO SCH ×2 (09:23→20:06)
[2022-07-26] MEDS: Letrozole 2.5 MG TAB PO SCH (09:24)
[2022-07-26] MEDS: Empagliflozin 10 MG TAB PO SCH (09:24)
[2022-07-26] MEDS: Furosemide 20 MG TAB PO SCH (09:25)
[2022-07-26] MEDS: Insulin Glargine 30 UNITS/0.3 ML VIAL SC SCH ×2 (09:26→21:40)
[2022-07-26] MEDS: Nystatin 500,000 UNITS/5 ML UDCUP SSW SCH ×4 (09:26→20:05)
[2022-07-26] MEDS: HumaLOG 300 UNITS/3 ML VIAL SC PRN (11:17)
[2022-07-26 16:09] VITALS: BMI 25.4
[2022-07-27] MEDS: Ipratropium/Albuterol 3 ML NEB NEB SCH ×5 (00:37→23:20)
[2022-07-27] MEDS: Guaifenesin DM 100-10/5 ML UDCUP PO SCH ×6 (02:19→21:10)
[2022-07-27 05:46] LABS: Anion Gap 11 mmol/L (10-20); BUN (Urea Nitrogen) 51 mg/dL (9.8-20.1); Calc. Creatinine Clearance 42 mL/min (70-130); Calcium 9.6 mg/dL (7.8-10.44); Carbon Dioxide 29 mmol/L (23-31); Chloride 102 mmol/L (98-107); Estimated GFR 46; Glucose 92 mg/dL (83-110); Sodium 138 mmol/L (136-145)
[2022-07-27] MEDS: Mometasone 200 MCG/Formoterol 5 MCG 120 PUFF INHALER INH SCH ×2 (06:56→18:57)
[2022-07-27] MEDS: Insulin Glargine 30 UNITS/0.3 ML VIAL SC SCH ×2 (09:09→21:14)
[2022-07-27] MEDS: Potassium Chloride 20 MEQ TAB PO SCH (09:10)
[2022-07-27] MEDS: Letrozole 2.5 MG TAB PO SCH (09:10)
[2022-07-27] MEDS: Apixaban 5 MG TAB PO SCH ×2 (09:10→21:10)
[2022-07-27] MEDS: Montelukast Sodium 10 mg Tablet PO SCH (09:10)
[2022-07-27] MEDS: Nystatin 500,000 UNITS/5 ML UDCUP SSW SCH ×4 (09:10→21:10)
[2022-07-27] MEDS: Saccharomyces boulardii 250 MG CAP PO SCH (09:10)
[2022-07-27] MEDS: Digoxin 0.125 MG TAB PO SCH (09:10)
[2022-07-27] MEDS: predniSONE 20 MG TAB PO SCH (09:11)
[2022-07-27] MEDS: Empagliflozin 10 MG TAB PO SCH (09:11)
[2022-07-27] MEDS: Ezetimibe 10 MG TAB PO SCH (09:11)
[2022-07-27] MEDS: Bupropion 150 MG XL TAB PO SCH ×2 (09:11→21:10)
[2022-07-27] MEDS: Furosemide 20 MG TAB PO SCH (09:12)
[2022-07-27] MEDS ORDERED: Melatonin 3 MG TAB PO PRN (13:53)
[2022-07-28] MEDS: Guaifenesin DM 100-10/5 ML UDCUP PO SCH ×6 (02:07→20:55)
[2022-07-28] MEDS: Ipratropium/Albuterol 3 ML NEB NEB SCH ×4 (07:17→23:33)
[2022-07-28] MEDS: Mometasone 200 MCG/Formoterol 5 MCG 120 PUFF INHALER INH SCH ×2 (07:30→18:47)
[2022-07-28] MEDS: Nystatin 500,000 UNITS/5 ML UDCUP SSW SCH ×4 (09:51→20:55)
[2022-07-28] MEDS: Digoxin 0.125 MG TAB PO SCH (09:52)
[2022-07-28] MEDS: Potassium Chloride 20 MEQ TAB PO SCH (09:53)
[2022-07-28] MEDS: Furosemide 20 MG TAB PO SCH (09:53)
[2022-07-28] MEDS: Empagliflozin 10 MG TAB PO SCH (09:53)
[2022-07-28] MEDS: Apixaban 5 MG TAB PO SCH ×2 (09:53→20:52)
[2022-07-28] MEDS: Saccharomyces boulardii 250 MG CAP PO SCH (09:53)
[2022-07-28] MEDS: Montelukast Sodium 10 mg Tablet PO SCH (09:54)
[2022-07-28] MEDS: Insulin Glargine 30 UNITS/0.3 ML VIAL SC SCH ×2 (09:54→20:55)
[2022-07-28] MEDS: Bupropion 150 MG XL TAB PO SCH ×2 (09:54→20:54)
[2022-07-28] MEDS: Ezetimibe 10 MG TAB PO SCH (09:54)
[2022-07-28] MEDS: Letrozole 2.5 MG TAB PO SCH (09:59)
[2022-07-29] MEDS: Guaifenesin DM 100-10/5 ML UDCUP PO SCH ×6 (01:44→20:57)
[2022-07-29 04:25] LABS: Mean Corpuscular Volume 84.6 fl (78.0-98.0); Mean Platelet Volume 9.3 fL (7.4-10.4); Platelet Count 195 10x3/uL (130-400); Red Blood Cell (RBC) Count 4.46 mill/uL (4.20-5.40)
[2022-07-29 04:51] LABS: Anion Gap 12 mmol/L (10-20); BUN (Urea Nitrogen) 36 mg/dL (9.8-20.1); Calc. Creatinine Clearance 43 mL/min (70-130); Calcium 9.4 mg/dL (7.8-10.44); Carbon Dioxide 27 mmol/L (23-31); Chloride 103 mmol/L (98-107); Estimated GFR 48; Glucose 79 mg/dL (83-110); Potassium 4.2 mmol/L (3.5-5.1); Sodium 138 mmol/L (136-145)
[2022-07-29] MEDS: Ipratropium/Albuterol 3 ML NEB NEB SCH ×3 (07:34→18:28)
[2022-07-29] MEDS: Mometasone 200 MCG/Formoterol 5 MCG 120 PUFF INHALER INH SCH ×2 (07:36→18:29)
[2022-07-29] MEDS: Dronabinol 2.5 MG CAP PO SCH ×2 (09:52→17:50)
[2022-07-29] MEDS: Potassium Chloride 20 MEQ TAB PO SCH (09:53)
[2022-07-29] MEDS: Saccharomyces boulardii 250 MG CAP PO SCH (09:53)
[2022-07-29] MEDS: Digoxin 0.125 MG TAB PO SCH (09:53)
[2022-07-29] MEDS: Ezetimibe 10 MG TAB PO SCH (09:53)
[2022-07-29] MEDS: Bupropion 150 MG XL TAB PO SCH ×2 (09:54→20:57)
[2022-07-29] MEDS: Apixaban 5 MG TAB PO SCH ×2 (09:54→20:56)
[2022-07-29] MEDS: Empagliflozin 10 MG TAB PO SCH (09:54)
[2022-07-29] MEDS: Montelukast Sodium 10 mg Tablet PO SCH (09:55)
[2022-07-29] MEDS: Nystatin 500,000 UNITS/5 ML UDCUP SSW SCH ×4 (09:55→20:57)
[2022-07-29] MEDS: Insulin Glargine 30 UNITS/0.3 ML VIAL SC SCH ×2 (09:55→20:58)
[2022-07-29] MEDS: Furosemide 20 MG TAB PO SCH (09:55)
[2022-07-29] MEDS: Letrozole 2.5 MG TAB PO SCH (10:06)
[2022-07-29] MEDS ORDERED: Melatonin 3 MG TAB PO PRN (12:00)
[2022-07-29 18:35] LABS: Bacteria/HPF None Seen HPF (None Seen); Bilirubin Negative (Negative); Blood, Urine Negative (Negative); CAUTI Indications for Culture Dysuria,urgency,freq; Clarity Clear (Clear); Glucose, Urine (Dipstick) Normal (Negative); Ketone, Urine Negative (Negative); Leukocyte Negative Leu/uL (Negative); Nitrite Negative (Negative); Protein, Urine (Dipstick) 20 mg/dL (Neg-Trace); RBC/HPF 0-3 HPF (0-3); Specific Gravity, Urine 1.011 (1.002-1.036); Squamous Epithelial None Seen HPF (0-3); Urobilinogen Normal mg/dL (Less than 2); WBC/HPF 0-3 HPF (0-3); pH, Urine 7.5 (5.0-9.0)
[2022-07-29 18:36] LABS: Urine Culture Reflex No No
[2022-07-30] MEDS: Ipratropium/Albuterol 3 ML NEB NEB SCH ×4 (00:55→18:42)
[2022-07-30] MEDS: Guaifenesin DM 100-10/5 ML UDCUP PO SCH ×6 (01:42→21:09)
[2022-07-30] MEDS: Mometasone 200 MCG/Formoterol 5 MCG 120 PUFF INHALER INH SCH ×2 (07:18→18:42)
[2022-07-30] MEDS: Nystatin 500,000 UNITS/5 ML UDCUP SSW SCH ×4 (08:43→21:10)
[2022-07-30] MEDS: Empagliflozin 10 MG TAB PO SCH (08:43)
[2022-07-30] MEDS: Digoxin 0.125 MG TAB PO SCH (08:43)
[2022-07-30] MEDS: Furosemide 20 MG TAB PO SCH (08:43)
[2022-07-30] MEDS: Potassium Chloride 20 MEQ TAB PO SCH (08:43)
[2022-07-30] MEDS: Saccharomyces boulardii 250 MG CAP PO SCH (08:44)
[2022-07-30] MEDS: Montelukast Sodium 10 mg Tablet PO SCH (08:44)
[2022-07-30] MEDS: Insulin Glargine 30 UNITS/0.3 ML VIAL SC SCH ×2 (08:44→21:10)
[2022-07-30] MEDS: Ezetimibe 10 MG TAB PO SCH (08:44)
[2022-07-30] MEDS: Apixaban 5 MG TAB PO SCH ×2 (08:44→21:10)
[2022-07-30] MEDS: Bupropion 150 MG XL TAB PO SCH ×2 (08:44→21:10)
[2022-07-30] MEDS: Letrozole 2.5 MG TAB PO SCH (08:44)
[2022-07-30] MEDS: Dronabinol 2.5 MG CAP PO SCH ×2 (08:57→17:34)
[2022-07-31] MEDS: Ipratropium/Albuterol 3 ML NEB NEB SCH ×2 (00:50→07:01)
[2022-07-31] MEDS: Guaifenesin DM 100-10/5 ML UDCUP PO SCH ×4 (01:59→13:59)
[2022-07-31] MEDS: Mometasone 200 MCG/Formoterol 5 MCG 120 PUFF INHALER INH SCH (07:02)
[2022-07-31] MEDS: Apixaban 5 MG TAB PO SCH (09:06)
[2022-07-31] MEDS: Furosemide 20 MG TAB PO SCH (09:07)
[2022-07-31] MEDS: Empagliflozin 10 MG TAB PO SCH (09:07)
[2022-07-31] MEDS: Bupropion 150 MG XL TAB PO SCH (09:07)
[2022-07-31] MEDS: Digoxin 0.125 MG TAB PO SCH (09:07)
[2022-07-31] MEDS: Ezetimibe 10 MG TAB PO SCH (09:07)
[2022-07-31] MEDS: Insulin Glargine 30 UNITS/0.3 ML VIAL SC SCH (09:08)
[2022-07-31] MEDS: Montelukast Sodium 10 mg Tablet PO SCH (09:08)
[2022-07-31] MEDS: Potassium Chloride 20 MEQ TAB PO SCH (09:09)
[2022-07-31] MEDS: Saccharomyces boulardii 250 MG CAP PO SCH (09:09)
[2022-07-31] MEDS: Nystatin 500,000 UNITS/5 ML UDCUP SSW SCH ×2 (09:09→13:59)
[2022-07-31] MEDS ORDERED: Ipratropium/Albuterol 3 ML NEB NEB PRN (10:32)
[2022-07-31 12:04] VITALS: TEMP 97.5
[2022-07-31] MEDS: Letrozole 2.5 MG TAB PO SCH (12:27)
[2022-07-31] MEDS: Dronabinol 2.5 MG CAP PO SCH (12:27)
[2022-07-31 16:12] VITALS: BP 126/60
== END 2022-07-31 16:00 | DRG 871 ==
LOC: ERS 12:23 → CCU 15:54 → T4-B 07-16 11:49 → 2NO 07-18 15:48
PROVIDERS: ADMIT Internal Medicine; ATTEND Internal Medicine
PROC: 02HV33Z Insertion of Infusion Device into Superior Vena Cava, Percutaneous Approach (ICD-10-PCS; principal; 2022-07-15)
PROC: B548ZZA Ultrasonography of Superior Vena Cava, Guidance (ICD-10-PCS; 2022-07-15)
PROC: 3E04329 Introduction of Other Anti-infective into Central Vein, Percutaneous Approach (ICD-10-PCS; 2022-07-15)
PROC: 3E043XZ Introduction of Vasopressor into Central Vein, Percutaneous Approach (ICD-10-PCS; 2022-07-15)
DX: A41.89 Other specified sepsis (principal); I21.A1 Myocardial infarction type 2; J96.01 Acute respiratory failure with hypoxia; R65.21 Severe sepsis with septic shock; J12.3 Human metapneumovirus pneumonia; I50.43 Acute on chronic combined systolic (congestive) and diastolic (congestive) heart failure; N17.9 Acute kidney failure, unspecified; J45.901 Unspecified asthma with (acute) exacerbation; I48.11 Longstanding persistent atrial fibrillation; B37.0 Candidal stomatitis; Z20.822 Contact with and (suspected) exposure to COVID-19; Z96.653 Presence of artificial knee joint, bilateral; F32.A Depression, unspecified; I11.0 Hypertensive heart disease with heart failure; Z93.3 Colostomy status; Z85.3 Personal history of malignant neoplasm of breast; Z90.49 Acquired absence of other specified parts of digestive tract; Z90.710 Acquired absence of both cervix and uterus; Z88.1 Allergy status to other antibiotic agents; Z88.2 Allergy status to sulfonamides; Z88.0 Allergy status to penicillin; Z88.8 Allergy status to other drugs, medicaments and biological substances; Z79.01 Long term (current) use of anticoagulants; Z79.899 Other long term (current) drug therapy; Z79.84 Long term (current) use of oral hypoglycemic drugs; Z98.1 Arthrodesis status; Z79.51 Long term (current) use of inhaled steroids; E78.5 Hyperlipidemia, unspecified; F41.9 Anxiety disorder, unspecified; K21.9 Gastro-esophageal reflux disease without esophagitis; D72.819 Decreased white blood cell count, unspecified; D64.9 Anemia, unspecified; R73.9 Hyperglycemia, unspecified; T38.0X5A Adverse effect of glucocorticoids and synthetic analogues, initial encounter
CPT/HCPCS: 36415; 36416; 36556; 36600; 71045; 74018; 80048; 80053; 80162; 81001; 82553; 82805; 83605; 83690; 83735; 83880; 84145; 84484; 85025; 85027; 85610; 85730; 87040; 87633; 87811; 93005; 93306; 94640; 94660; 94760; 96365; 96375; J0456; J1160; J1815; J1940; J2185; J2270; J2920; J3490; J7050; J7512; J7611; J7620; Q0167; Q0177

== ENCOUNTER 2022-09-06 15:17 | Outpatient (CLI) | payer MEDICARE | END 2022-09-06 15:18 | disposition home or self-care (01) | LOC: RAD 15:17 | PROVIDERS: ATTEND Surgery | DX: R14.0 Abdominal distension (gaseous) (principal) | CPT/HCPCS: 74018 ==